=== PATIENT | female | born 1965 | race Caucasian/White ===

== ENCOUNTER → 2017-10-01 08:51 | Outpatient (CLI) | payer OTHER, SELFPAY ==
--- NOTE | 2017-10-01 08:58 | BI_ITS ---
MAMMOGRAPHY - BILATERAL DIAGNOSTIC REASON FOR EXAM: Female, 52 years old. Left breast skin changes. PERTINENT HISTORY: Non-contributory. TECHNIQUE: Digital bilateral breast lesley (3D mammographic acquisition) in the CC and MLO projections. 2-D mediolateral oblique (MLO) and craniocaudad (CC) views of both breasts were obtained. CAD: Full Field Digital Mammography with Computer Added Detection was performed. COMPARISON: None. Baseline examination. FINDINGS: Breast Composition: There are scattered areas of fibroglandular density. There is a 6.8 mm well-defined nodule in the inferior medial aspect of the left breast as seen on the craniocaudad view. This is not well seen on the MLO view. Correlation with ultrasound is recommended. No other significant abnormalities are identified. BI/DIAG MAMM W/CAD, BILAT IMPRESSION: Small nodular density in the left breast as described. Correlation with ultrasound is recommended. ASSESSMENT CATEGORY: BIRADS Category 0: Incomplete. Need additional imaging evaluation. A letter regarding these results will be sent to the patient by the facility within 30 days. Approximately 10% of breast cancers are not detected by mammography. A normal mammogram should not delay biopsy of a clinically suspicious abnormality. Electronically Signed: Myles West MD at 10:50 EDT Tel [phone], Service support ,
--- NOTE | 2017-10-01 08:59 | US_ITS ---
STUDY: ULTRASOUND BREAST - LEFT REASON FOR EXAM: Female, 52 years old. Abnormal screening mammogram. TECHNIQUE: Axial and longitudinal images of the LEFT breast were performed with a high resolution ultrasound transducer. COMPARISON: Comparison is made with prior mammogram done earlier today. FINDINGS: LEFT Breast: There are 2 small adjacent cysts at the 9:00 position breast at 3 cm from the nipple. The larger measures 3 mm x 3 mm x 3 mm. Skin abnormality is at the 3:00 position in the breast. No sonographic abnormality is seen at that site. US/Breast Limited Unilateral IMPRESSION: 2 subcentimeters cyst at the 9:00 position the breast at 3 cm from nipple. ASSESSMENT CATEGORY: BIRADS Category 2: Benign. A letter regarding these results will be sent to the patient by the facility within 30 days. Electronically Signed: Myles West MD at 12:38 EDT Tel [phone], Service support ,
== END ==
PROVIDERS: PCP Nurse Practitioner; Visit Provider Nurse Practitioner
DX: Z12.31 Encounter for screening mammogram for malignant neoplasm of breast (principal); N60.02 Solitary cyst of left breast; R23.4 Changes in skin texture; Z78.0 Asymptomatic menopausal state
CPT/HCPCS: 76642; 77062; 77066; G0279

== ENCOUNTER 2018-02-03 08:27 | Emergency (ER) | payer OTHER, SELFPAY ==
[2018-02-03 08:28] VITALS: BP 151/87; PULSE 90; RESP 18; TEMP 36.6; O2SAT 99; BMI 30.4
--- NOTE | 2018-02-03 08:43 | ED.VISSUMM ---
- ER Visit Summary Date of Service: 02/03/18 Chief Complaint: Slipped and fell on the ice x2 History of Present Illness: The patient is a 52 F tube osteoarthritis with a prior left knee replacement. Patient was outside and slipped on her patio landing on her right buttock. She did not hit her head. No LOC. No blood thinners. She went inside and rested. She got ready for work she was leaving her house going down a few steps she slipped again her left elbow and left wrist. Again she did not hit her head. She is left-hand dominant. She is never had surgery to her elbow over her wrist. She denies any back pain. Prior to the falls she felt fine. Physical Examination: Middle-aged female no acute distress. Complaining of elbow and wrist pain. Vital signs are stable and afebrile. H EENT exam is unremarkable atraumatic. No facial trauma. No scalp trauma. C-spine nontender. Trachea midline. Lungs clear to auscultation bilaterally. Chest wall nontender. Heart regular rate and rhythm. Abdomen is soft and nontender. Normal bowel sounds no peritoneal signs. Pelvic girdle intact. She has full range of motion to both hips. She has range of motion of both knees. Prior left knee replacement scar. Both ankles and feet are nontender. Dorsi and plantar flexion intact. Back is nontender. I nontender. Right upper extremity is nontender. Left shoulder has no skin tenderness. No deformity. Normal range of motion. She has pain on palpation of the left elbow and increasing pain with extension. She also has pain with palpation of the left wrist. No gross bony deformity. Left hand is neurovascular intact. Neurologically she is awake and alert with no focal deficits. Test Results: Left elbow x-ray (3 views ) shows no acute fracture or bony abnormality. Left humerus shows no acute abnormality. 2 views. Left wrist x-ray view shows no acute abnormality. Films were read by myself. Emergency Department Course and Treatment: [place] for pain and she requested something for nausea will be given Zofran. Repeat exam at 09 22 patient is doing well. I discussed and went over all x-rays with her. Abdomen patient was discharged radiologist was able to evaluate the films and is a concern is a nondisplaced radial head fracture. I reviewed his films again I specifically do not see that but had the patient return placed in a long-arm posterior splint for immobilization. She has an orthopedic surgeon she sees in [facility] and will follow up with him to determine if there is a nondisplaced radial head fracture or not. Treatment Plan: Discharged home. Ice all sore areas. Motrin and Limited [place] for pain. Follow-up with your doctor if not improving. Disposition: Discharge Impression: Slipped on ice and fell x2 Acute left elbow rule out nondisplaced radial head fracture placed in a long-arm posterior splint Acute left wrist sprain This note was generated with bluebird bio dictation software. It may contain incorrect words, spelling, and punctuation that were not noted in review of the chart prior to signing ED Disposition - Plan for ED Patient: Disposition: Home or Assisted Living Chief Complaint: Fall Instructions: ED Contusion Elbow, ED Sprain Wrist Prescriptions: Hydrocodone/Acetaminophen [[place] 5-325 Tablet] 1 ea PO Q6H PRN PRN #14 tab PRN Reason: Pain Referrals: Ava Ann, DELIVERY CREW WORKER-C [Primary Care Provider] - 1 Week if not improving Additional Instructions: Ice to all sore areas. Motrin for pain and swelling and Limited [place] for pain. Follow-up with your primary care provider if not improving to be reevaluated.
--- NOTE | 2018-02-03 08:47 | ED.DCSUM_ITS ---
- ER Visit Summary Date of Service: 02/03/18 Chief Complaint: Slipped and fell on the ice x2 History of Present Illness: The patient is a 52 F tube osteoarthritis with a prior left knee replacement. Patient was outside and slipped on her patio landing on her right buttock. She did not hit her head. No LOC. No blood thinners. She went inside and rested. She got ready for work she was leaving her house going down a few steps she slipped again her left elbow and left wrist. Again she did not hit her head. She is left-hand dominant. She is never had surgery to her elbow over her wrist. She denies any back pain. Prior to the falls she felt fine. Physical Examination: Middle-aged female no acute distress. Complaining of elbow and wrist pain. Vital signs are stable and afebrile. H EENT exam is unremarkable atraumatic. No facial trauma. No scalp trauma. C-spine non tender. Trachea midline. Lungs clear to auscultation bilaterally. Chest wall nontender. Heart regular rate and rhythm. Abdomen is soft and nontender. Normal bowel sounds no peritoneal signs. Pelvic girdle intact. She has full range of motion to both hips. She has range of motion of both knees. Prior left knee replacement scar. Both ankles and feet are nontender. Dorsi and plantar flexion intact. Back is nontender. I nontender. Right upper extremity is nontender. Left shoulder has no skin tenderness. No deformity. Normal range of motion. She has pain on palpation of the left elbow and increasing pain with extension. She also has pain with palpation of the left wrist. No gross bony deformity. Left hand is neurovascular intact. Neurologically she is awake and alert with no focal deficits. Test Results: Left elbow x-ray (3 views ) shows no acute fracture or bony abnormality. Left humerus shows no acute abnormality. 2 views. Left wrist x-ray view shows no acute abnormality. Films were read by myself. Emergency Department Course and Treatment: [place] for pain and she requested something for nausea will be given Zofran. Repeat exam at 09 22 patient is doing well. I discussed and went over all x- rays with her. Abdomen patient was discharged radiologist was able to evaluate the films and is a concern is a nondisplaced radial head fracture. I reviewed his films again I specifically do not see that but had the patient return placed in a long-arm posterior splint for immobilization. She has an orthopedic surgeon she sees in [facility] and will follow up with him to determine if there is a nondisplaced radial head fracture or not. Treatment Plan: Discharged home. Ice all sore areas. Motrin and Limited [place] for pain. Follow-up with your doctor if not improving. Disposition: Discharge Impression: Slipped on ice and fell x2 Acute left elbow rule out nondisplaced radial head fracture placed in a long-arm posterior splint Acute left wrist sprain This note was generated with [employer] dictation software. It may contain incorrect words, spelling, and punctuation that were not noted in review of the chart prior to signing ED Disposition - Plan for ED Patient: Disposition: Home or Assisted Living Chief Complaint: Fall Instructions: ED Contusion Elbow, ED Sprain Wrist Prescriptions: Hydrocodone/Acetaminophen [[place] 5-325 Tablet] 1 ea PO Q6H PRN PRN #14 tab PRN Reason: Pain Referrals: Ava Ann, NURSE LEADER-C [Primary Care Provider] - 1 Week if not improving Additional Instructions: Ice to all sore areas. Motrin for pain and swelling and Limited [place] for pain. Follow-up with your primary care provider if not improving to be reevaluated.
[2018-02-03] MEDS: Ondansetron ODT 4 MG Tablet PO (08:50)
[2018-02-03] MEDS: HYDROcodone Bitartrate/Apap 5/325 Tablet PO (08:50)
--- NOTE | 2018-02-03 09:00 | RAD_ITS ---
STUDY: X-RAY - LEFT ELBOW REASON FOR EXAM: Female, 52 years old. Elbow pain following a fall. TECHNIQUE: 3 view(s) of the elbow. COMPARISON: None. FINDINGS: Nondisplaced radial neck fracture. Normal radiocapitellar and ulnotrochlear articulations. Joint effusion. RAD/Elbow min 3 Views IMPRESSION: There is a nondisplaced radial neck fracture with a joint effusion. Electronically Signed: Myles West MD at 9:42 EST Tel [phone], Service support ,
--- NOTE | 2018-02-03 09:06 | RAD_ITS ---
STUDY: X-RAY - LEFT WRIST REASON FOR EXAM: Female, 52 years old. Pain following a fall. TECHNIQUE: 3 view(s) of the wrist were obtained. COMPARISON: None. FINDINGS: Normal visualized distal radius and ulna. Normal radiocarpal articulation. Normal distal radioulnar articulation. Normal carpal bones. Normal carpal articulations. Normal carpometacarpal articulation of the thumb. Normal second through fifth carpometacarpal articulations. Normal visualized metacarpal bones. The soft tissue structures are unremarkable. RAD/Wrist min 3 Views IMPRESSION: Normal x-ray examination of the wrist. Electronically Signed: Myles West MD at 9:43 EST Tel [phone], Service support ,
--- NOTE | 2018-02-03 09:11 | RAD_ITS ---
STUDY: X-RAY - LEFT HUMERUS REASON FOR EXAM: Female, 52 years old. Elbow pain following a fall. TECHNIQUE: 2 view(s) of the humerus. COMPARISON: None. FINDINGS: Normal visualized humerus. There is no demonstrated fracture or osseous destructive process. There is no demonstrated soft tissue abnormality. RAD/Humerus min 2 Views IMPRESSION: Normal x-ray examination of the humerus. Electronically Signed: Myles West MD at 9:41 EST Tel [phone], Service support ,
--- NOTE | 2018-02-03 09:25 | ED.DEP ---
ED Disposition - Plan for ED Patient: Disposition: Home or Assisted Living Chief Complaint: Fall Instructions: ED Sprain Wrist, ED Contusion Elbow Prescriptions: Hydrocodone/Acetaminophen [[place] 5-325 Tablet] 1 ea PO Q6H PRN PRN #14 tab PRN Reason: Pain Referrals: Ava Ann, GLOBAL PROFESSIONAL-C [Primary Care Provider] - 1 Week if not improving Additional Instructions: Ice to all sore areas. Motrin for pain and swelling and Limited [place] for pain. Follow-up with your primary care provider if not improving to be reevaluated.
--- NOTE | 2018-02-03 09:29 | DCINST.ED_ITS ---
ED Disposition - Plan for ED Patient: Disposition: Home or Assisted Living Chief Complaint: Fall Instructions: ED Sprain Wrist, ED Contusion Elbow Prescriptions: Hydrocodone/Acetaminophen [[place] 5-325 Tablet] 1 ea PO Q6H PRN PRN #14 tab PRN Reason: Pain Referrals: Ava Ann, REELING MACHINE SETUP OPERATOR-C [Primary Care Provider] - 1 Week if not improving Additional Instructions: Ice to all sore areas. Motrin for pain and swelling and Limited [place] for pain. Follow-up with your primary care provider if not improving to be reevaluated.
[2018-02-03 09:46] VITALS: BP 129/74; PULSE 62; RESP 15; O2SAT 97
== END 2018-02-03 10:48 | disposition home or self-care (01) ==
PROVIDERS: Emergency Provider Emergency Medicine; Family Provider Nurse Practitioner; PCP Nurse Practitioner
DX: S52.125A Nondisplaced fracture of head of left radius, initial encounter for closed fracture (principal); S63.502A Unspecified sprain of left wrist, initial encounter; W00.2XXA Other fall from one level to another due to ice and snow, initial encounter; Y93.89 Activity, other specified; Y92.008 Other place in unspecified non-institutional (private) residence as the place of occurrence of the external cause
CPT/HCPCS: 29105; 73060; 73080; 73110; 99284

== ENCOUNTER → 2018-04-13 15:59 | Outpatient (CLI) | payer OTHER, SELFPAY ==
--- OUTSIDE RECORDS SUMMARY | 2018-06-15 18:33 | XMS RPT_ITS | Continuity of Care Document ---
:1965 Author Organization [facility] Address [address] [facility] [address] [place] [address] Phone Care Team Providers Name Role Phone Ava Ann CNP Unavailable Timo Martinez Unavailable Brooklyn Hunt Unavailable Unavailable Edison Porter Unavailable Unavailable Yulisa Leal Unavailable Unavailable Unavailable Unavailable Problems Name Dates Details Artificial knee joint present, left (Z96.652, V43.65) Status: Active Bilateral breast cysts (N60.01, 610.0) Comments: from mammogram, to repeat in a year Status: Active BMI 32.0-32.9,adult (Z68.32, V85.32) Status: Active Body aches (R52, 780.96) Status: Active Breast skin changes (R23.4, 782.8) Comments: at posterio 3 oclock position Status: Active Cough (R05, 786.2) Status: Active Deliveries (Parity) Comments: 3. had gestational diabetes Status: Active Encounter for screening mammogram for breast cancer (Renamed from Encounter for screening mammogram for malignant neoplasm of breast) (Z12.31, V76.12) Status: Active Facial pressure (R68.89, 780.99) Status: Active History of Fen Fen use Comments: was on redux, fen fen Status: Active Hypocalcemia (E83.51, 275.41) Comments: normal Status: Active Nasal congestion (R09.81, 478.19) Status: Active Nonsmoker (Z78.9, V49.89) Status: Active Postmenopausal (Renamed from Postmenopausal status) (Z78.0, V49.81) Status: Active Pregnancies () Comments: 3. Status: Active Right knee pain (M25.561, 719.46) Status: Active Sinusitis (J32.9, 473.9) Status: Active Sinusitis, acute (J01.90, 461.9) Status: Active Medications Name Dates Details Augmentin 875-125 MG Oral Tablet 1 (one) Tablet bid for 14 days Quantity: 28 {Tablet} Refills: 0 Ordered:28-Mar-2018 Yulisa Leal Start : 28-Mar-2018 Active Comments:Take with food Benzonatate 200 MG Oral Capsule 1 (one) Capsule PO TID PRN for 7 days Quantity: 21 {Capsule} Refills: 0 Ordered:28-Mar-2018 Yulisa Leal Start : 28-Mar-2018 Active PLEXUS products 1 qd Active Zyrtec 1 bid prn Active Allergies and Adverse Reactions Name Dates Details No Known Drug Allergies (Allergy) Onset: 20-Sep-2017 Status: Active Procedures Procedure Dates Details R KNEE - medial meniscus tear and Completed cleanup Comments: 04/2016 TKR -- LEFT Completed Comments: No post-op complications. 2011 - appx -- had 7 total surgeries on that knee Date Value Details 03-Feb-2018 Discharge Instruction Result: Comments: See Note; NOTES: [facility] Medical Records Department [address] [place] [id number] Discharge Instruction 02/03/18 0925 MR#: [id number] Acct: [id number] Name: LUIS HIGHTOWER Rep #: [id number] : 1965 52 From: Ian Staples MD PCP: Ava Ann NP Status: DEP ER ED Disposition - Plan for ED Patient: Disposition: Home or Assisted Living Chief Complaint: Fal l Instructions: ED Sprain Wrist, ED Contusion Elbow Prescriptions: Hydrocodone/Acetaminophen [[place] 5-325 Tablet] 1 ea PO Q6H PRN PRN #14 tab PRN Reason: Pain Referrals: Ava Ann NP-C [Primary Care P rosario] - 1 Week if not improving Additional Instructions: Ice to all sore areas. Motrin for pain and swelling and Limited [place] for pain. Follow-up with your primary care provider if not improving t o be reevaluated. What to do if you have Problems For any increased pain, shortness of breath, bleeding, nausea or vomiting, chest pain, or any unexpected problems, contact your Primary Care Provide r. Call [facility] ([phone]) or report to the closest Emergency Room. Call 911 if necessary. 02/03/18 1751 <Electronically signed by Ian Staples MD> Date ____ Ian Staples MD Cosigner Signature (If Indicated): Date CC: Ava Ann NP 03-Feb-2018 Emergency Department Summary Result: Comments: See Note; NOTES: [facility] Medical Records Department [address] [place] [address] Emergency Department Summary 02/03/18 0843 MR#: [id number] Acct: [id number] Name: LUIS HIGHTOWER Rep #: [id number] : 1965 52 From: Ian Staples MD PCP: Ava Ann NP Status: DEP ER - ER Visit Summary Date of Service: 02/03/18 Chief Complaint: Slipped and fell on the ic e x2 History of Present Illness: The patient is a 52 F tube osteoarthritis with a prior left knee replacement. Patient was outside and slipped on her patio landing on her right buttock. She did not hit her head. No LOC. No blood thinners. She went inside and rested. She got ready for work she was leaving her house going down a few steps she slipped again her left elbow and left wrist. Again she did n ot hit her head. She is left-hand dominant. She is never had surgery to her elbow over her wrist. She denies any back pain. Prior to the falls she felt fine. Physical Examination: Middle-aged female no acute distress. Complaining of elbow and wrist pain. Vital signs are stable and afebrile. H EENT exam is unremarkable atraumatic. No facial trauma. No scalp trauma. C-spine nontender. Trachea midline. Lungs clear to auscultation bilaterally. Chest wall nontender. Heart regular rate and rhythm. Abdomen is soft and nontender. Normal bowel sounds no peritoneal signs. Pelvic girdle intact. She has full r venancio of motion to both hips. She has range of motion of both knees. Prior left knee replacement scar. Both ankles and feet are nontender. Dorsi and plantar flexion intact. Back is nontender. I nontender . Right upper extremity is nontender. Left shoulder has no skin tenderness. No deformity. Normal range of motion. She has pain on palpation of the left elbow and increasing pain with extension. She also has pain with palpation of the left wrist. No gross bony deformity. Left hand is neurovascular intact. Neurologically she is awake and alert with no focal deficits. Test Results: Left elbow x-ray (3 v iews ) shows no acute fracture or bony abnormality. Left humerus shows no acute abnormality. 2 views. Left wrist x-ray view shows no acute abnormality. Films were read by myself. Emergency Department C ourse and Treatment: [place] for pain and she requested something for nausea will be given Zofran. Repeat exam at 22 patient is doing well. I discussed and went over all x-rays with her. Abdomen patien t was discharged radiologist was able to evaluate the films and is a concern is a nondisplaced radial head fracture. I reviewed his films again I specifically do not see that but had the patient return placed in a long-arm posterior splint for immobilization. She has an orthopedic surgeon she sees in [facility] and will follow up with him to determine if there is a nondisplaced radial head fracture or no t. Treatment Plan: Discharged home. Ice all sore areas. Motrin and Limited [place] for pain. Follow-up with your doctor if not improving. Disposition: Discharge Impression: Slipped on ice and fell x2 A cute left elbow rule out nondisplaced radial head fracture placed in a long-arm posterior splint Acute left wrist sprain This note was generated with [employer] dictation software. It may contain incorre ct words, spelling, and punctuation that were not noted in review of the chart prior to signing ED Disposition - Plan for ED Patient: Disposition: Home or Assisted Living Chief Complaint: Fall Instru ctions: ED Contusion Elbow, ED Sprain Wrist Prescriptions: Hydrocodone/Acetaminophen [[place] 5-325 Tablet] 1 ea PO Q6H PRN PRN #14 tab PRN Reason: Pain Referrals: Ava Ann, HOT END OPERATOR-C [Primary Care Provider] - 1 Week if not improving Additional Instructions: Ice to all sore areas. Motrin for pain and swelling and Limited [place] for pain. Follow-up with your primary care provider if not improving to be ree valuated. What to do if you have Problems For any increased pain, shortness of breath, bleeding, nausea or vomiting, chest pain, or any unexpected problems, contact your Primary Care Provider. Call [facility] ([phone]) or report to the closest Emergency Room. Call 911 if necessary. 02/03/18 1751 <Electronically signed by Ian Staples MD> Date Ian Staples MD Cosigner Signature (If Indicated): Date CC: Ava Ann NP 03-Feb-2018 Humerus min 2 Views Result: Comments: See Note; NOTES: [facility] Imaging Services [address] [place] [address] Humerus min 2 Views MR#: [id number] Acct: [id number] Name: LORRI HIGHTWOER Rep #: [id number] D OB: 1965 F 52 From: Myles West MD PCP: Ava Ann NP Status: REG ER Study: Humerus min 2 Views Date of Exam: 02/03/18 Exam# [id number] Ordering Dr: Ian Staples MD STUDY: X-RAY - LEFT HUMERUS REASON FOR EXAM: Female, 52 years old. Elbow pain following a fall. TECHNIQUE: 2 view(s) of the humerus. COMPARISON: None. FINDINGS: Normal visualized hu merus. There is no demonstrated fracture or osseous destructive process. There is no demonstrated soft tissue abnormality. RAD/Humerus min 2 Vie ws IMPRESSION: Normal x-ray examination of the humerus. Electronically Signed: Myles West MD at 9:41 EST Tel [phone], Service support , CC: Ava Ann NP; Ian Staples MD Antique Collector: Signed 03-Feb-2018 Elbow min 3 Views Result: Comments: See Note; NOTES: [facility] Imaging Services [address] [place] [address] Elbow min 3 Views MR#: [id number] Acct: [id number] Name: LORRI HIGHTOWER Rep #: [id number] : 1965 F 52 From: Myles West MD PCP: Ava Ann NP Status: REG ER Study: Elbow min 3 Views Date of Exam: 02/03/18 Exam# [id number] Ordering Dr: Ian Staples MD STUDY: X-RAY - LEFT ELB OW REASON FOR EXAM: Female, 52 years old. Elbow pain following a fall. TECHNIQUE: 3 view(s) of the elbow. COMPARISON: None. FINDINGS: Nondisplaced radial neck fra cture. Normal radiocapitellar and ulnotrochlear articulations. Joint effusion. RAD/Elbow min 3 Views IMPRESSION: There is a nondisplaced radial neck fracture with a joint effusion. Electronically Signed: Myles West MD at 9:42 EST Tel [phone], Service support , CC: Ava Ann NP; Ian Staples MD Antique Collector: Signed 03-Feb-2018 Wrist min 3 Views Result: Comments: See Note; NOTES: [facility] Imaging Services [address] [place] [address] Wrist min 3 Views MR#: [id number] Acct: [id number] Name: LORRI HIGHTOWER Rep #: [id number] : 1965 F 52 From: Myles West MD PCP: Ava Ann NP Status: REG ER Study: Wrist min 3 Views Date of Exam: 02/03/18 Exam# [id number] Ordering Dr: Ian Staples MD STUDY: X-RAY - LEFT WRI ST REASON FOR EXAM: Female, 52 years old. Pain following a fall. TECHNIQUE: 3 view(s) of the wrist were obtained. COMPARISON: None. FINDINGS: Normal visualized di stal radius and ulna. Normal radiocarpal articulation. Normal distal radioulnar articulation. Normal carpal bones. Normal carpal articulations. Normal carpometacarpal articulation of the thumb. Normal second through fifth carpometacarpal articulations. Normal visualized metacarpal bones. The soft tissue structures are unremarkable. RAD/Wrist min 3 Views IMPRESSION: Normal x-ray examination of the wrist. Electronically Signed: Myles West MD at 9:43 EST Tel [phone], Service support , CC: Ava Ann NP; Ian Staples MD Antique Collector: Signed 01-Oct-2017 Breast Limited Unilateral Result: Comments: See Note; NOTES: [facility] Imaging Services [address] [place] [address] Breast Limited Unilateral MR#: [id number] Acct: [id number] Name: LORRI HIGHTOWER Rep #: [id number] : 1965 F 52 From: Myles West MD PCP: Ava Ann NP Status: REG CLI Study: Breast Limited Unilateral Date of Exam: 10/01/17 Exam# [id number] Ordering Dr: Ava Ann STUDY: UL TRASOUND BREAST - LEFT REASON FOR EXAM: Female, 52 years old. Abnormal screening mammogram. TECHNIQUE: Axial and longitudinal images of the LEFT breast were performed with a high resolution ultrasound transducer. COMPARISON: Comparison is made with prior mammogram done earlier today. FINDINGS: LEFT Breast: There are 2 small adjacent cysts at the 9:00 position b reast at 3 cm from the nipple. The larger measures 3 mm x 3 mm x 3 mm. Skin abnormality is at the 3:00 position in the breast. No sonographic abnormality is seen at that site. US/Breast Limited Unilateral IMPRESSION: 2 subcentimeters cyst at the 9:00 position the breast at 3 cm from nipple. ASSESSMENT CATEGOR Y: BIRADS Category 2: Benign. A letter regarding these results will be sent to the patient by the facility within 30 days. Electronically Signed: Myles West MD at 12:38 EDT Tel [phone], Service support , CC: Ava Ann NP Antique Collector: Signed 01-Oct-2017 DIAG MAMM W/CAD, BILAT Result: Comments: See Note; NOTES: [facility] Imaging Services [address] [place] [address] DIAG MAMM W/CAD, BILAT MR#: [id number] Acct: [id number] Name: CAMPBELLLORRI AMARAL Rep #: [id number] : 1965 F 52 From: Myles West MD PCP: Ava Ann NP Status: REG CLI Study: DIAG MAMM W/CAD, BILAT Date of Exam: 10/01/17 Exam# [id number] Ordering Dr: Ava Ann MAMMOGRAPHY - B ILATERAL DIAGNOSTIC REASON FOR EXAM: Female, 52 years old. Left breast skin changes. PERTINENT HISTORY: Non-contributory. TECHNIQUE: Digital bilateral breast lesley (3D mammographic acquisition) in the CC and MLO projections. 2-D mediolateral oblique (MLO) and craniocaudad (CC) views of both breasts were obtained. CAD: Full Field Digital Mammography with Computer Added Detection was performed. ADAM RISON: None. Baseline examination. FINDINGS: Breast Composition: There are scattered areas of fibroglandular density. There is a 6.8 mm well-defined nodule in the i nferior medial aspect of the left breast as seen on the craniocaudad view. This is not well seen on the MLO view. Correlation with ultrasound is recommended. No other significant abnormalities are iden tified. BI/DIAG MAMM W/CAD, BILAT IMPRESSION: Small nodular density in the left breast as described. Correlation with ultrasound is recommended. ASSESSMENT CATEGORY: BIRADS Category 0: Incomplete. Need additional imaging evaluation. A letter regarding these results will be sent to the patient by the facility within 30 days. Approximately 10% of breast cancers are not detected by mammography. A normal mammogram should not delay biopsy of a clinically suspicious abnormality. Electronically Signed: Myles West MD at 10:50 EDT Tel [phone], Service support , CC: Ava Ciesa HOT END OPERATOR Antique Collector: Signed Family History Unknown Family Member Name Dates Details Father Comments: , adenocarcinoma of lung, neck - squamous cell carcinoma, HTN, [place], high triglycerides Status: Active Mother Comments: unknown breast finding, osteoarthritis, alcholism Status: Active Social History Name Dates Details Alcohol Use Comments: 0-2 weekly Status: Active Caffeine Use Comments: 1 unsweet tea daily Status: Active No Drug Use Status: Active Non Smoker/No Tobacco Use Status: Active Vital Signs Date Test Result Details :53 Temperature 97.7 f Comments: Method: Temporal Pulse 93 /min Comments: Pattern: Regular Respiration Rate 18 /min Comments: Pattern: Unlabored O2 SAT 95 % Comments: Room air BP Systolic 130 mm[Hg] Comments: Patient Position: Sitting; Cuff Location: Left Arm; Cuff Size: Standard BP Diastolic 82 mm[Hg] Comments: Patient Position: Sitting; Cuff Location: Left Arm; Cuff Size: Standard Weight 214.125 lb Height 68 in Body Mass Index Calculated 32.56 kg/m2 Body Surface Area Calculated 2.1 m2 :13 Temperature 97.6 f Comments: Method: Temporal Pulse 89 /min Comments: Pattern: Regular Respiration Rate 18 /min Comments: Pattern: Unlabored O2 SAT 97 % Comments: Room air BP Systolic 120 mm[Hg] Comments: Patient Position: Sitting; Cuff Location: Left Arm; Cuff Size: Standard BP Diastolic 84 mm[Hg] Comments: Patient Position: Sitting; Cuff Location: Left Arm; Cuff Size: Standard Weight 214.125 lb Height 68 in Body Mass Index Calculated 32.56 kg/m2 Body Surface Area Calculated 2.1 m2 [id number]-Uit-[id number]:15 Temperature 97.5 f Pulse 98 /min Comments: Pattern: Regular Respiration Rate 18 /min Comments: Pattern: Unlabored O2 SAT 99 % Comments: Room air BP Systolic 128 mm[Hg] Comments: Patient Position: Sitting; Cuff Location: Left Arm; Cuff Size: Standard BP Diastolic 82 mm[Hg] Comments: Patient Position: Sitting; Cuff Location: Left Arm; Cuff Size: Standard Weight 216 lb Height 68 in Body Mass Index Calculated 32.84 kg/m2 Body Surface Area Calculated 2.11 m2 :21 Pulse 102 /min Comments: Pattern: Regular Respiration Rate 16 /min Comments: Pattern: Unlabored O2 SAT 98 % Comments: Room air BP Systolic 122 mm[Hg] Comments: Patient Position: Sitting; Cuff Location: Left Arm; Cuff Size: Standard BP Diastolic 60 mm[Hg] Comments: Patient Position: Sitting; Cuff Location: Left Arm; Cuff Size: Standard Weight 216 lb Height 68 in Body Mass Index Calculated 32.84 kg/m2 Body Surface Area Calculated 2.11 m2 Results Date Description Value Details 34-Iyv-254503:10 Lipid Panel (89271) Comments: September 24; PATIENT WAS FASTINGPERFORMED BY: [employer] [id number] LDL/HDL Ratio 2.3 {ratio} (Normal) Range: 0.0-3.2 Comments: LDL/HDL Ratio Men Women 1/2 Avg.Risk 1.0 1.5 Av g.Risk 3.6 3.2 2X Avg.Risk 6.2 5.0 3X Avg.Risk 8.0 6.1 LDL Cholesterol Calc 108 mg/dL (Abnormal) Range: 0-99 VLDL Cholesterol Gabriel 27 mg/dL (Normal) Range: 5-40 HDL Cholesterol 46 mg/dL (Normal) Triglycerides 135 mg/dL (Normal) Range: 0-149 Cholesterol, Total 181 mg/dL (Normal) Range: 100-199 81-Ezp-415397:10 Metabolic Panel, Comprehensive Comments: September 24; PATIENT WAS FASTINGPERFORMED BY: [employer] [id number] ([id number]) ALT (SGPT) 16 [iU]/L (Normal) Range: 0-32 AST (SGOT) 16 [iU]/L (Normal) Range: 0-40 Alkaline Phosphatase 94 [iU]/L (Normal) Range: 39-117 Bilirubin, Total 0.5 mg/dL (Normal) Range: 0.0-1.2 A/G Ratio 1.9 (Normal) Range: 1.2-2.2 Globulin, Total 2.3 g/dL (Normal) Range: 1.5-4.5 Albumin 4.4 g/dL (Normal) Range: 3.5-5.5 Protein, Total 6.7 g/dL (Normal) Range: 6.0-8.5 Calcium 9.6 mg/dL (Normal) Range: 8.7-10.2 Carbon Dioxide, Total 23 mmol/L (Normal) Range: 20-29 Chloride 104 mmol/L (Normal) Range: 96-106 Potassium 4.7 mmol/L (Normal) Range: 3.5-5.2 Sodium 144 mmol/L (Normal) Range: 134-144 BUN/Creatinine Ratio 11 (Normal) Range: 9-23 eGFR If Africn Am 110 mL/min/1.73 (Normal) eGFR If NonAfricn Am 96 mL/min/1.73 (Normal) Creatinine 0.73 mg/dL (Normal) Range: 0.57-1.00 BUN 8 mg/dL (Normal) Range: 6-24 Glucose 94 mg/dL (Normal) Range: 65-99 95-Ruf-576613:10 TSH (THYROID STIMULATING Comments: September 24; PATIENT WAS FASTINGPERFORMED BY: [facility] [id number] [employer]) ([id number]) TSH 2.570 {uIU/mL} (Normal) Range: 0.450-4.500 27-Pnj-367508:10 CBC, Platelets & Auto Diff Comments: to be done September 24; PATIENT WAS FASTINGPERFORMED BY: [employer] [id number] ([id number]) Immature Grans (Abs) 0.0 {x10E3/uL} (Normal) Range: 0.0-0.1 Immature Granulocytes 0 % (Normal) Baso (Absolute) 0.0 {x10E3/uL} (Normal) Range: 0.0-0.2 Eos (Absolute) 0.1 {x10E3/uL} (Normal) Range: 0.0-0.4 Monocytes(Absolute) 0.5 {x10E3/uL} (Normal) Range: 0.1-0.9 Lymphs (Absolute) 2.1 {x10E3/uL} (Normal) Range: 0.7-3.1 Neutrophils (Absolute) 5.2 {x10E3/uL} (Normal) Range: 1.4-7.0 Basos 1 % (Normal) Eos 2 % (Normal) Monocytes 6 % (Normal) Lymphs 27 % (Normal) Neutrophils 64 % (Normal) Platelets 296 {x10E3/uL} (Normal) Range: 150-379 RDW 14.3 % (Normal) Range: 12.3-15.4 MCHC 32.0 g/dL (Normal) Range: 31.5-35.7 MCH 27.3 pg (Normal) Range: 26.6-33.0 MCV 85 fL (Normal) Range: 79-97 Hematocrit 39.7 % (Normal) Range: 34.0-46.6 Hemoglobin 12.7 g/dL (Normal) Range: 11.1-15.9 RBC 4.66 {x10E6/uL} (Normal) Range: 3.77-5.28 WBC 7.9 {x10E3/uL} (Normal) Range: 3.4-10.8 Plan of Care Name Dates Details Instructions Sinusitis : Follow up if no improvement or if symptoms worsen Indication: Sinusitis Sinusitis : Sinusitis *: sinus infection Indication: Sinusitis Nonsmoker : Eprescribed prescriptions (G8553) Indication: Nonsmoker Nasal congestion : Follow up if no improvement or if symptoms worsen Indication: Nasal congestion Sinusitis, acute : *URI Treatment Indication: Sinusitis, acute Sinusitis, acute : *URI Symptoms Indication: Sinusitis, acute Sinusitis, acute : *Antibiotic Usage Education - Female Indication: Sinusitis, acute Nonsmoker : Eprescribed prescriptions (G8553) Indication: Nonsmoker Nonsmoker : Follow up as needed Indication: Nonsmoker Hypocalcemia : Reviewed Lab Indication: Hypocalcemia Bilateral breast cysts : Reviewed Diagnostic Tests Indication: Bilateral breast cysts Hypocalcemia : Eprescribed prescriptions (G8553) Indication: Hypocalcemia Nonsmoker : Follow up in 2 weeks Indication: Nonsmoker Hypocalcemia : Eprescribed prescriptions (G8553) Indication: Hypocalcemia Planned Procedures Breast Ultrasound - LeftBy: Marissa WANG, On: 01-Oct-2017 Intent Ava Espino CNP BILATERAL DIAGNOSTIC DIGITAL MAMMOGRAPHY On: 01-Oct-2017 Intent ([id number])By: Ava Ann CNP, CNP, Comments: with tomosynthesis Ava Murillo ULTRASOUND, LEFT BREAST ([id number])By: Marissa On: 20-Sep-2017 Intent Ava WANG CNP, Mary E SCREENING DIGITAL TOMOSYNTHESIS OF On: 20-Sep-2017 Intent BREAST ([id number])By: Ava Ann CNP, CNP, Mary E DEXA SCAN AXIAL SKELETON ([id number])By: On: 20-Sep-2017 Intent Ava Ann CNP, CNP Ava Murillo Instructions Name Dates Details Nonsmoker : How to access health information online Indication: Nonsmoker Nonsmoker : How to access health information online - Detail Indication: Nonsmoker Facial pressure : Patient Instructions Indication: Facial pressure Nonsmoker : How to access health information online Indication: Nonsmoker Nonsmoker : How to access health information online - Detail Indication: Nonsmoker Nonsmoker : Patient Instructions Indication: Nonsmoker Hypocalcemia : How to access health information online Indication: Hypocalcemia Hypocalcemia : How to access health information online - Detail Indication: Hypocalcemia Hypocalcemia : Patient Instructions Indication: Hypocalcemia Hypocalcemia : How to access health information online Indication: Hypocalcemia Hypocalcemia : How to access health information online - Detail Indication: Hypocalcemia Encounters Review On: 28-Mar-2018 8:53 Encounter Reason: Sinusitis - Symptoms include nasal congestion, forehead pressure and cough. Onset was 4 day(s) ago. The patient describes this as worsening. Note for Sinusitis: Symptoms started 5 days ago with sore t hroat, cough-yellow/green, nasal drainage-green, nasal congestion, chest tightness,Encounter Diagnosis: BMI 32.0-32.9,adult, Nonsmoker, Body aches, Facial pressure, Sinusitis, Cough [facility] Office Visit On: 15-Feb-2018 9:12 Encounter Reason: Sinusitis - Symptoms include nasal congestion, cough, ear pain and headache. Onset was 3 week(s) ago. The patient describes this as worsening. Note for Sinusitis: swollen left side of neck, dizzinessH End: 15-Feb-2018 9:35 ave tried mucinex for cough, x 3 weeks now with earache., [ADDITIONAL REASON] Elbow Problem - Note for Elbow problem: Fracture left elbow contusion of wrist and should occured 2 weeks ago Fell onice Encounter Diagnosis: Nonsmoker, BMI 32.0-32.9,adult, Sinusitis, acute, Nasal congestion [facility] Office Visit On: 07-Oct-2017 14:12 Encounter Reason: Follow up tests - Diagnostic tests include other (labs). Note for Discuss procedure results: here to review labs, had mammogram and needed ultrasound of breastEncounter Diagnosis: BMI 32.0-32.9,adult, Nonsmoker, Hypocalcemia, End: 07-Oct-2017 14:32 Bilateral breast cysts, Postmenopausal (Renamed from Postmenopausal status), Right knee pain [facility] Phone Encounter On: 01-Oct-2017 8:56 Encounter Diagnosis: Breast skin changes End: 01-Oct-2017 9:02 [facility] Office Visit On: 20-Sep-2017 15:15 Encounter Reason: Breast Problems - The patient complains of breast problems in the left lower outer quadrant. Onset was 2 week(s) ago. Note for Breast problems: Breast issue noticed a week agoEncounter Diagnosis: Hypocalcemia, BMI 32.0-32.9,adult End: 20-Sep-2017 16:12 , Nonsmoker, History of Fen Fen use, Breast skin changes, Artificial knee joint present, left, Postmenopausal (Renamed from Postmenopausal status), Encounter for screening mammogram for breast cancer (Renamed from Encounter for screening mammogram f or malignant neoplasm of breast) [facility] [employer]-Radha Hightower; a guarantor
--- OUTSIDE RECORDS SUMMARY | 2018-06-15 18:33 | XMS RPT_ITS | Continuity of Care Document ---
:1965 Author Organization [facility] Address [address] [place] [address] Phone Care Team Providers Name Role Phone Ava Ann CNP Unavailable Cameronyvon Timo Unavailable Edison Porter Unavailable Unavailable Yulisa Leal [...] Discharge Instruction Result: Comments: See Note; NOTES: [facility] Medical Records Department [address] [place] [address] Discharge Instruction 02/03/18 0925 MR#: [id number] Acct: [id number] Name: LUIS HIGHTOWER Rep #: [id number] : 1965 52 From: Ian Staples MD PCP: Ava Ann NP Status: DEP ER ED Disposition - Plan for ED Patient: Disposition: Home or Assisted Living Chief Complaint: Fal l Instructions: ED Sprain Wrist, ED Contusion Elbow Prescriptions: Hydrocodone/Acetaminophen [[place] 5-325 Tablet] 1 ea PO Q6H PRN PRN #14 tab PRN Reason: Pain Referrals: Ava Ann NP-C [Primary Care P rosario] - 1 Week if not improving Additional Instructions: Ice to all sore areas. Motrin for pain and swelling and Limited [place] for pain. Follow-up with your primary care provider if not improving t o be reevaluated. What to do if you have Problems For any increased pain, shortness of breath, bleeding, nausea or vomiting, chest pain, or any unexpected problems, contact your Primary Care Provide r. Call [facility] Registry ([phone]) or report to the closest Emergency Room. Call 911 if necessary. 02/03/18 1751 <Electronically signed by Ian Staples MD> Date ____ Ian Staples MD Cosigner Signature (If Indicated): Date CC: Ava Ann NP 03-Feb-2018 Emergency Department Summary Result: Comments: See Note; NOTES: [facility] Medical Records Department [address] [place] [place] [address] Emergency Department Summary 02/03/18 0843 MR#: [id number] Acct: [id number] Name: LUIS HIGHTOWER Rep #: [id number] : 1965 52 From: Ian Staples MD [...] myself. Emergency Department C ourse and Treatment: [place] for pain and she requested something for nausea will be given Zofran. Repeat exam at 09 22 patient is doing well. I discussed [...] has an orthopedic surgeon she sees in [facility] and will follow up with him to determine if there is a nondisplaced radial head fracture or no t. Treatment Plan: Discharged home. Ice all sore areas. Motrin and Limited [place] for pain. Follow-up with your doctor if not improving. Disposition: Discharge Impression: Slipped on ice and fell x2 A cute left elbow rule out nondisplaced radial head fracture placed in a long-arm posterior splint Acute left wrist sprain This note was generated with FidusNet dictation software. It may contain incorre ct words, spelling, and punctuation that were not noted in review of the chart prior to signing ED Disposition - Plan for ED Patient: Disposition: Home or Assisted Living Chief Complaint: Fall Instru ctions: ED Contusion Elbow, ED Sprain Wrist Prescriptions: Hydrocodone/Acetaminophen [[place] 5-325 Tablet] 1 ea PO Q6H PRN PRN #14 tab PRN Reason: Pain Referrals: Ava Ann, PUMP OILER-C [Primary Care Provider] - 1 Week if not improving Additional Instructions: Ice to all sore areas. Motrin for pain and swelling and Limited [place] for pain. Follow-up with your primary care provider if not improving to be ree valuated. What to do if you have Problems For any increased pain, shortness of breath, bleeding, nausea or vomiting, chest pain, or any unexpected problems, contact your Primary Care Provider. Call [facility] ([phone]) or report to the closest Emergency Room. Call 911 if necessary. 02/03/18 1751 <Electronically signed by Ian Staples MD> Date Ian Staples MD Cosigner Signature (If Indicated): Date CC: Ava Ann NP 03-Feb-2018 Humerus min 2 Views Result: Comments: See Note; NOTES: [facility] Imaging Services [address] [place] [address] Humerus min 2 Views MR#: [id number] Acct: [id number] Name: CAMPBELLLORRI Monae Rep #: [id number] D OB: 1965 F 52 From: Myles West MD PCP: Ava Ann NP Status: REG ER Study: Humerus min 2 Views Date of Exam: 02/03/18 Exam# [id number] Ordering Dr: Ian Staples MD STUDY: X-RAY [...] Myles West MD at 9:41 EST Tel [phone], Service support , CC: Ava Ann NP; Ian Staples MD Copier Repair Technician: Signed 03-Feb-2018 Elbow min 3 Views Result: Comments: See Note; NOTES: [facility] Imaging Services [address] [place] [address] Elbow min 3 Views MR#: [id number] Acct: [id number] Name: LORRI HIGHTOWER Rep #: [id number] : 1965 F 52 From: Myles West MD PCP: Ava Ann NP Status: REG ER Study: Elbow min 3 Views Date of Exam: 02/03/18 Exam# [id number] Ordering Dr: Ian Staples MD STUDY: X-RAY [...] Myles West MD at 9:42 EST Tel [phone], Service support , CC: Ava Ann NP; Ian Staples MD Copier Repair Technician: Signed 03-Feb-2018 Wrist min 3 Views Result: Comments: See Note; NOTES: [facility] Imaging Services [address] [place] [address] Wrist min 3 Views MR#: [id number] Acct: [id number] Name: LORRI HIGHTOWER Rep #: [id number] : 1965 F 52 From: Myles West MD PCP: Ava Ann NP Status: REG ER Study: Wrist min 3 Views Date of Exam: 02/03/18 Exam# [id number] Ordering Dr: Ian Staples MD STUDY: X-RAY [...] Myles West MD at 9:43 EST Tel [phone], Service support , CC: Ava Ann NP; Ian Staples MD Copier Repair Technician: Signed 01-Oct-2017 Breast Limited Unilateral Result: Comments: See Note; NOTES: [facility] Imaging Services [address] [place] [address] Breast Limited Unilateral MR#: [id number] Acct: [id number] Name: LORRI HIGHTOWER Rep #: [id number] : 1965 F 52 From: Myles West MD PCP: Ava Ann NP Status: REG CLI Study: Breast Limited Unilateral Date of Exam: 10/01/17 Exam# [id number] Ordering Dr: Ava Ann STUDY: UL TRASOUND [...] Myles West MD at 12:38 EDT Tel [phone], Service support , CC: Ava Ann NP Copier Repair Technician: Signed 01-Oct-2017 DIAG MAMM W/CAD, BILAT Result: Comments: See Note; NOTES: [facility] Imaging Services [address] [place] [address] DIAG MAMM W/CAD, BILAT MR#: [id number] Acct: [id number] Name: LORRI HIGHTOWER Rep #: [id number] : 1965 F 52 From: Myles West MD PCP: Ava Ann NP Status: REG CLI Study: DIAG MAMM W/CAD, BILAT Date of Exam: 10/01/17 Exam# [id number] Ordering Dr: Ava Ann MAMMOGRAPHY - B [...] Myles West MD at 10:50 EDT Tel [phone], Service support , CC: Ava Ann NP Copier Repair Technician: Signed Family History Unknown Family Member Name Dates Details Father Comments: , adenocarcinoma of lung, neck - squamous cell carcinoma, HTN, [place], high triglycerides Status: Active Mother Comments: unknown [...] kg/m2 Body Surface Area Calculated 2.1 m2 :15 Temperature 97.5 f Pulse 98 /min Comments: [...] 2.11 m2 Results Date Description Value Details 06-Zvx-245550:10 Lipid Panel (00988) Comments: September 24; PATIENT WAS FASTINGPERFORMED BY: [id number] [facility] [id number] LDL/HDL Ratio 2.3 {ratio} (Normal) Range: 0.0-3.2 Comments: LDL/HDL Ratio Men Women 1/2 Avg.Risk 1.0 1.5 Av g.Risk 3.6 3.2 2X Avg.Risk 6.2 5.0 3X Avg.Risk 8.0 6.1 LDL Cholesterol Calc 108 mg/dL (Abnormal) Range: 0-99 VLDL Cholesterol Gabriel 27 mg/dL (Normal) Range: 5-40 HDL Cholesterol 46 mg/dL (Normal) Triglycerides 135 mg/dL (Normal) Range: 0-149 Cholesterol, Total 181 mg/dL (Normal) Range: 100-199 52-Wnw-823826:10 Metabolic Panel, Comprehensive Comments: September 24; PATIENT WAS FASTINGPERFORMED BY: [employer] [facility] [id number] ([id number]) ALT (SGPT) 16 [iU]/L (Normal) Range: 0-32 [...] 6-24 Glucose 94 mg/dL (Normal) Range: 65-99 69-Qkl-768029:10 TSH (THYROID STIMULATING Comments: September 24; PATIENT WAS FASTINGPERFORMED BY: [facility] [facility] [id number] HORMONE) ([id number]) TSH 2.570 {uIU/mL} (Normal) Range: 0.450-4.500 00-Gcg-854350:10 CBC, Platelets & Auto Diff Comments: to be done September 24; PATIENT WAS FASTINGPERFORMED BY: [employer] [facility] [id number] ([id number]) Immature Grans (Abs) 0.0 {x10E3/uL} (Normal) Range: [...] with tomosynthesis Ava Murillo ULTRASOUND, LEFT BREAST ([id number])By: Marissa On: 20-Sep-2017 Intent Ava WANG CNP, Mary E SCREENING DIGITAL TOMOSYNTHESIS OF On: 20-Sep-2017 Intent BREAST ([id number])By: Ava Ann CNP, CNP, Mary E DEXA SCAN AXIAL SKELETON ([id number])By: On: 20-Sep-2017 Intent Ava Ann CNP, CNP, Mary E Instructions Name Dates Details Nonsmoker : How [...] information online - Detail Indication: Hypocalcemia Encounters Office Visit On: 28-Mar-2018 8:53 Encounter Reason: Sinusitis - Symptoms include nasal congestion, forehead pressure and cough. Onset was 4 day(s) ago. The patient describes this as worsening. Note for Sinusitis: Symptoms started 5 days ago with sore t End: 28-Mar-2018 14:08 hroat, cough-yellow/green, nasal drainage-green, nasal congestion, chest tightness, feels like has had fevers-but hasn't taken temp due to not having thermometer. No chills, SOB, CP. Has been using OTC products with little relief. Encounter Diagnosis: BMI 32.0-32.9,adult, Nonsmoker, Body aches, Facial [...] malignant neoplasm of breast) [facility] [employer]Jo-Radha Hightower; a guarantor
--- OUTSIDE RECORDS SUMMARY | 2018-06-15 18:33 | XMS RPT_ITS | Continuity of Care Document ---
:1965 Author Organization [facility] Address [address] [place] [address] Phone Care Team Providers Name Role Phone [...] Active Sinusitis, acute (J01.90, 461.9) Status: Active Unspecified Diagnosis Status: Active Medications Name Dates Details Augmentin 875-125 MG Oral Tablet 1 (one) Tablet bid for 14 days Quantity: 28 {Tablet} Refills: 0 Ordered:28-Mar-2018 Yulisa Leal Start : 28-Mar-2018 Active Comments:Take with food Benzonatate 200 MG Oral Capsule 1 (one) Capsule PO TID PRN for 7 days Quantity: 21 {Capsule} Refills: 0 Ordered:28-Mar-2018 Yulisa Leal Start : 28-Mar-2018 Active Cheratussin AC 100-10 MG/5ML Oral Syrup 4 Milliliter qhs prn for 0 days Quantity: 120 {Milliliter} Refills: 0 Ordered:29-Mar-2018 Ava Ann CNP, CNP, Mary E Start : 29-Mar-2018 Active PLEXUS products 1 qd Active Zyrtec [...] Discharge Instruction Result: Comments: See Note; NOTES: [facility] Medical Records Department [address] [place] [address] Discharge Instruction 02/03/18 0925 MR#: [id number] Acct: [id number] Name: LUIS HIGHTOWER Rep #: [id number] : 1965 52 From: Ian Staples MD PCP: Ava Ann NP Status: DEP ER ED Disposition - Plan for ED Patient: Disposition: Home or Assisted Living Chief Complaint: Fal l Instructions: ED Sprain Wrist, ED Contusion Elbow Prescriptions: Hydrocodone/Acetaminophen [[place] 5-325 Tablet] 1 ea PO Q6H PRN PRN #14 tab PRN Reason: Pain Referrals: Ava Ann NP-C [Primary Care Sanjuana ponce] - 1 Week if not improving Additional Instructions: Ice to all sore areas. Motrin for pain and swelling and Limited [place] for pain. Follow-up with your primary care provider if not improving t o be reevaluated. What to do if you have Problems For any increased pain, shortness of breath, bleeding, nausea or vomiting, chest pain, or any unexpected problems, contact your Primary Care Provide r. Call [facility] Registry ([phone]) or report to the closest Emergency Room. Call 911 if necessary. 02/03/18 1751 <Electronically signed by Ian Staples MD> Date ____ Ian Staples MD Cosigner Signature (If Indicated): Date CC: Ava Ann NP 03-Feb-2018 Emergency Department Summary Result: Comments: See Note; NOTES: [facility] Medical Records Department [address] [place] [address] Emergency Department Summary 02/03/18 0843 MR#: [id number] Acct: [id number] Name: LUIS HIGHTOWER Rep #: [id number] : 1965 52 From: Ian Staples MD [...] myself. Emergency Department C ourse and Treatment: [place] for pain and she requested something for [...] has an orthopedic surgeon she sees in [facility] and will follow up with him to determine if there is a nondisplaced radial head fracture or no t. Treatment Plan: Discharged home. Ice all sore areas. Motrin and Limited [place] for pain. Follow-up with your doctor if not improving. Disposition: Discharge Impression: Slipped on ice and fell x2 A cute left elbow rule out nondisplaced radial head fracture placed in a long-arm posterior splint Acute left wrist sprain This note was generated with Tissuetechation software. It may contain incorre ct words, spelling, and punctuation that were not noted in review of the chart prior to signing ED Disposition - Plan for ED Patient: Disposition: Home or Assisted Living Chief Complaint: Fall Instru ctions: ED Contusion Elbow, ED Sprain Wrist Prescriptions: Hydrocodone/Acetaminophen [[place] 5-325 Tablet] 1 ea PO Q6H PRN PRN #14 tab PRN Reason: Pain Referrals: Ava Ann, INSURANCE ASSOCIATE-C [Primary Care Provider] - 1 Week if not improving Additional Instructions: Ice to all sore areas. Motrin for pain and swelling and Limited [place] for pain. Follow-up with your primary care provider if not improving to be ree valuated. What to do if you have Problems For any increased pain, shortness of breath, bleeding, nausea or vomiting, chest pain, or any unexpected problems, contact your Primary Care Provider. Call [employer] [facility] ([phone]) or report to the closest Emergency Room. Call 911 if necessary. 02/03/18 1751 <Electronically signed by Ian Staples MD> Date Ian Staples MD Cosigner Signature (If Indicated): Date CC: Ava Ann NP 03-Feb-2018 Humerus min 2 Views Result: Comments: See Note; NOTES: [facility] Imaging Services [address] [place] [address] Humerus min 2 Views MR#: [id number] Acct: [id number] Name: LORRI HIGHTOWER Rep #: [id number] D OB: 1965 F 52 From: Myles West MD PCP: Ava Ann NP Status: REG ER Study: Humerus min 2 Views Date of Exam: 02/03/18 Exam# [id number] Ordering Dr: Ian Staples MD STUDY: X-RAY [...] Myles West MD at 9:41 EST Tel [phone], Service support , CC: Ava Ann NP; Ian Staples MD Technician Anatomic Pathology: Signed 03-Feb-2018 Elbow min 3 Views Result: Comments: See Note; NOTES: [facility] Imaging Services [address] [place] [address] Elbow min 3 Views MR#: [id number] Acct: [id number] Name: LORRI HIGHTOWER Rep #: [id number] : 1965 F 52 From: Myles West MD PCP: Ava Ann NP Status: REG ER Study: Elbow min 3 Views Date of Exam: 02/03/18 Exam# [id number] Ordering Dr: Ian Staples MD STUDY: X-RAY - LEFT ELB REASON FOR EXAM: Female, 52 years old. Elbow pain following a fall. TECHNIQUE: 3 view(s) of the elbow. COMPARISON: None. FINDINGS: Nondisplaced radial neck fra cture. Normal radiocapitellar and ulnotrochlear articulations. Joint effusion. RAD/Elbow min 3 Views IMPRESSION: There is a nondisplaced radial neck fracture with a joint effusion. Electronically Signed: Myles West MD at 9:42 EST Tel [phone], Service support , CC: Ava Ann NP; Ian Staples MD Technician Anatomic Pathology: Signed 03-Feb-2018 Wrist min 3 Views Result: Comments: See Note; NOTES: [facility] Imaging Services [address] [place] [address] Wrist min 3 Views MR#: [id number] Acct: [id number] Name: LORRI HIGHTOWER Rep #: [id number] : 1965 F 52 From: Myles West MD PCP: Ava Ann NP Status: REG ER Study: Wrist min 3 Views Date of Exam: 02/03/18 Exam# [id number] Ordering Dr: Ian Staples MD STUDY: X-RAY - LEFT I ST REASON FOR EXAM: Female, 52 years [...] Myles West MD at 9:43 EST Tel [phone], Service support , CC: Ava Ann NP; Ian Staples MD Technician Anatomic Pathology: Signed 01-Oct-2017 Breast Limited Unilateral Result: Comments: See Note; NOTES: [facility] Imaging Services [address] [place] [address] Breast Limited Unilateral MR#: [id number] Acct: [id number] Name: LORRI HIGHTWOER Rep #: [id number] : 1965 F 52 From: Myles West MD PCP: Ava Ann NP Status: REG CLI Study: Breast Limited Unilateral Date of Exam: 10/01/17 Exam# [id number] Ordering Dr: Ava Ann STUDY: UL TRASOUND [...] Myles West MD at 12:38 EDT Tel [phone], Service support , CC: Ava Ann NP Technician Anatomic Pathology: Signed 01-Oct-2017 DIAG MAMM W/CAD, BILAT Result: Comments: See Note; NOTES: [facility] Imaging Services [address] [place] [address] DIAG MAMM W/CAD, BILAT MR#: [id number] Acct: [id number] Name: LORRI HIGHTOWER Rep #: [id number] : 1965 F 52 From: Myles West MD PCP: Ava Ann NP Status: REG CLI Study: DIAG MAMM W/CAD, BILAT Date of Exam: 10/01/17 Exam# [id number] Ordering Dr: Ava Ann MAMMOGRAPHY - B [...] Myles West MD at 10:50 EDT Tel [phone], Service support , CC: Ava Ann NP Technician Anatomic Pathology: Signed Family History Unknown Family Member Name Dates Details Father Comments: , adenocarcinoma of lung, neck - squamous cell carcinoma, HTN, [place], high triglycerides Status: Active Mother Comments: unknown [...] kg/m2 Body Surface Area Calculated 2.1 m2 79-Rrw-133454:15 Temperature 97.5 f Pulse 98 /min Comments: [...] kg/m2 Body Surface Area Calculated 2.11 m2 2-Pfc-074655:21 Pulse 102 /min Comments: Pattern: Regular Respiration [...] 2.11 m2 Results Date Description Value Details 03-Pnq-670599:10 Lipid Panel ([id number]) Comments: September 24; PATIENT WAS FASTINGPERFORMED BY: [email or web address] [id number] LDL/HDL Ratio 2.3 {ratio} (Normal) Range: 0.0-3.2 Comments: LDL/HDL Ratio Men Women 1/2 Avg.Risk 1.0 1.5 Av g.Risk 3.6 3.2 2X Avg.Risk 6.2 5.0 3X Avg.Risk 8.0 6.1 LDL Cholesterol Calc 108 mg/dL (Abnormal) Range: 0-99 VLDL Cholesterol Gabriel 27 mg/dL (Normal) Range: 5-40 HDL Cholesterol 46 mg/dL (Normal) Triglycerides 135 mg/dL (Normal) Range: 0-149 Cholesterol, Total 181 mg/dL (Normal) Range: 100-199 :10 Metabolic Panel, Comprehensive Comments: September 24; PATIENT WAS FASTINGPERFORMED BY: [email or web address] [id number] ([id number]) ALT (SGPT) 16 [iU]/L (Normal) Range: 0-32 [...] 6-24 Glucose 94 mg/dL (Normal) Range: 65-99 19-Nrz-490344:10 TSH (THYROID STIMULATING Comments: September 24; PATIENT WAS FASTINGPERFORMED BY: [employer] [facility] [id number] HORMONE) ([id number]) TSH 2.570 {uIU/mL} (Normal) Range: 0.450-4.500 75-Qtv-688774:10 CBC, Platelets & Auto Diff Comments: to be done September 24; PATIENT WAS FASTINGPERFORMED BY: [email or web address] [facility] [id number] ([id number]) Immature Grans (Abs) 0.0 {x10E3/uL} (Normal) Range: [...] with tomosynthesis Ava Murillo ULTRASOUND, LEFT BREAST ([id number])By: Marissa On: 20-Sep-2017 Intent Ava WANG CNP, Mary E SCREENING DIGITAL TOMOSYNTHESIS OF On: 20-Sep-2017 Intent BREAST ([id number])By: Ava Ann CNP, CNP, Mary E DEXA SCAN AXIAL SKELETON ([id number])By: On: 20-Sep-2017 Intent Ava Ann CNP, CNP, [...] information online - Detail Indication: Hypocalcemia Encounters Annotation/Addendum On: 29-Mar-2018 16:05 Encounter Diagnosis: Unspecified Diagnosis End: 29-Mar-2018 16:08 [facility] Office Visit On: 28-Mar-2018 8:53 Encounter Reason: [...] malignant neoplasm of breast) [facility] SuttonJo-Radha Hightower; a guarantor
--- OUTSIDE RECORDS SUMMARY | 2018-06-15 18:33 | XMS RPT_ITS ---
:1965 Author Organization OHIP Care Team Providers Name Role Phone SHAI ZAMBRANO Attending Unavailable SHAI ZAMBRANO Referring Unavailable SHAI ZAMBRANO Attending Unavailable SHAI ZAMBRANO Attending Unavailable SHAI ZAMBRANO Referring Unavailable SHAI ZAMBRANO Referring Unavailable Ava Ann Attending Unavailable Ava Ann Referring Unavailable Ava Ann Consulting Unavailable Felix Harden Attending Unavailable Felix Harden Referring Unavailable Ava Ann Primary Care Unavailable Ian Staples Attending Unavailable Ava Ann Primary Care Unavailable Ava Ann Attending Unavailable Primay Care Physicia, No Primary Care Unavailable Ava Ann Attending Unavailable Primay Care Physicia, No Primary Care Unavailable PROBLEMS PROBLEMS DATE TYPE CONDITION / CODE ATTENDING STATUS SOURCE 02/09/2018 Active Pain in right NA Active [facility] knee / Other [place] M25.561(ICD-10) Repository 02/03/2018 Unknown S50.00XA - Ian Staples Active [place] [facility] elbow, initial Repository encounter / S50.00XA(ICD-10) 02/03/2018 Unknown S63.509A - Ian Staples Active [place] [facility] sprain of [facility] unspecified Repository wrist, initial encounter / S63.509A(ICD-10) PROCEDURES PROCEDURES No Procedure Records FoundRESULTS RESULTS Observed: 04/13/2018 Status: F Source: [place] CULTURE, NOSE 3:44 PM [facility] REPOSITORY Gram Stain Gram Stain 1+ White Blood Cells No organisms seen Nasoph. Cult Ampicillin can be used for Beta-Lactamase negative isolates. Trimeth/Sulfa, Chloramphenicol, Cefotaxime, Ciprofloxacin, Amoxicillin/Clavulanic Acid,and Oral 2nd/3rd Generation Cephlosporins are effective against both Beta-Lactamase positive and Beta-Lactamase negative isolates. If further sensitivity studies are desired, please contact the Microbiology Laboratory within 48 hours. ORGANISM 1: Haemophilus influenzae Amount Growth 1+ Beta Lactamase Positive Performed By: #### M100.0900 #### [facility] [address] [place], [address] PROGRESS Observed: 02/27/2018 Status: COMPLETED Source: [place] 9:15 PM [facility] REPOSITORY HNO ID: [id number] Author: Shai Zambrano Service: (none) Author Type: Physician Type: Progress Notes Filed: 02/27/2018 9:20 PM Note Text: FRACTURE FOLLOW-UP Ms. Hightower presents today for her follow-up visit from: Left radial head fracture She is three weeks post-injury and was last seen two weeks ago. History: PAIN EVALUATION 02/25/2018 Pain Score: 2 Pain Location: Elbow-Left Description: Aching Duration Amount of Time: - ongoing Frequency: Continuous Intervention: Cold;Relaxation;Positioning The patient denies swelling, warmth, discharge, drainage, fevers, chills, sweats. She reports compliance with therapy, sling/splint/ambulatory device/dressing/wound care, and the use of medications. She reports no change in past medical AND surgical history, medications, allergies, social history, family history and review of systems since last visit, with the exception of the following: None Radiographs: Not applicable Physical Examination: mild tenderness about the radial head 120 - 20 elbow flexion/extension 45 - 45 pronation/supination Positive axillary, musculocutaneous, median, ulna, and radial nerve function Positive distal pulses PROCEDURE: Not applicable Impression: 1. left Radial head fracture Plan: Intervention: Sling as needed for pain ROM exercises as discussed Avoid weight bearing on elbow or arm F/u for repeat clinical/radiographic evaluation . Shai Zambrano MD CNOV Observed: 02/25/2018 Status: COMPLETED Source: [place] 1:45 PM [facility] REPOSITORY Office Visit (ORMDNA) KERLINELINA WESTFALL ([id number]) 1965 F [facility] Date Time Provider Department 02/25/18 1:45 PM SHAI ZAMBRANO During your visit today, we recorded the following information about you: Nina LIMA 02/25/2018 1:59 PM Signed Patient presents with: Recheck: left elbow Shai Zambrano MD 02/27/2018 9:20 PM Signed FRACTURE FOLLOW-UP Ms. Hightower presents today for her follow-up visit from: Left radial head fracture She is three weeks post-injury and was last seen two weeks ago. History: PAIN EVALUATION 02/25/2018 Pain Score: 2 Pain Location: Elbow-Left Description: Aching Duration Amount of Time: - ongoing Frequency: Continuous Intervention: Cold;Relaxation;Positioning The patient denies swelling, warmth, discharge, drainage, fevers, chills, sweats. She reports compliance with therapy, sling/splint/ambulatory device/dressing/wound care, and the use of medications. She reports no change in past medical AND surgical history, medications, allergies, social history, family history and review of systems since last visit, with the exception of the following: None Radiographs: Not applicable Physical Examination: mild tenderness about the radial head 120 - 20 elbow flexion/extension 45 - 45 pronation/supination Positive axillary, musculocutaneous, median, ulna, and radial nerve function Positive distal pulses PROCEDURE: Not applicable Impression: 1. left Radial head fracture Plan: Intervention: Sling as needed for pain ROM exercises as discussed Avoid weight bearing on elbow or arm F/u for repeat clinical/radiographic evaluation . Shai Zambrano MD Referring Provider: SHAI ZAMBRANO [[id number]] Allergies As of Date: 02/25/2018 (No Known Allergies) Date Reviewed: 02/25/2018 Reviewed by: Nina Valadez CT - Fully Assessed Reason for Visit: Recheck [92] Cmt: left elbow Primary Visit Diagnosis:Closed nondisplaced fracture of neck of left radius with routine healing, subsequent encounter [S52.135D] Prescriptions as of 02/25/2018 Sig: TURMERIC ORAL Take by mouth. ACETAMINOPHEN 500 MG TABLET Take 1,000 mg by mouth every * IBUPROFEN 200 MG TABLET Take 200 mg by mouth every 6 * METHYLPREDNISOLONE 4 MG TABLE* Take 1 tablet by mouth as dir* MELOXICAM 7.5 MG TABLET Take 1 tablet by mouth once d* HYDROCODONE 5 MG-ACETAMINOPHE* Take 1-2 tablets by mouth chano* Problem List As Of Date 02/25/2018 Noted Resolved Arthritis of knee, left [M17.12] INVALID FOR*05/08/2016 Leg swelling [M79.89] INVALID FOR*05/08/2016 S/P knee replacement [Z96.659] INVALID FOR* Ankle sprain [S93.409A] INVALID FOR*05/08/2016 Knee contusion [S80.00XA] INVALID FOR*05/08/2016 Primary osteoarthritis of right knee [M17.11] INVALID FOR* Lateral epicondylitis [M77.10] INVALID FOR* Degenerative tear of medial meniscus [M23.205] INVALID FOR* Visit Notes: >> Nina Valadez CT Fri Feb 25, 2018 1:47 PM Status: Signed Patient presents with: Recheck: left elbow Encounter Status:Closed by SHAI ZAMBRANO MD on 02/27/18 PROGRESS Observed: 02/11/2018 Status: COMPLETED Source: [place] 12:44 PM [facility] RE[facility] HNO ID: [id number] Author: Shai Zambrano Service: (none) Author Type: Physician Type: Progress Notes Filed: 02/11/2018 1:00 PM Note Text: [id number] Ms. Hightower was last seen for right knee pain due to osteoarthritis nine months. had the following plan implemented given a prescription for meloxicam She presents today for evaluation of left elbow injury that occurred approximately a week ago as well as an increase in her right knee pain. Patient reports slipping and falling on some steps at home. She was seen in the emergency room at an outlying facility and placed into a posterior splint and given a sling. She is here for definitive care History: PAIN EVALUATION 02/09/2018 Pain Score: 3 Pain Location: Elbow-Left Description: Aching;Burning;Shooting Duration Amount of Time: 1 Duration Units: Weeks Frequency: Continuous Intervention: Cold;Medication;Positioning The patient denies swelling, warmth, discharge, drainage, fevers, chills, sweats. She reports compliance with therapy, sling/splint/ambulatory device/dressing/wound care, and the use of medications. Previous treatments have included none. She reports no change in past medical AND surgical history, medications, allergies, social history, family history and review of systems since last visit, with the exception of the following: PAST MEDICAL HISTORY Diagnosis Date - Arthritis of knee, left 01/31/2011 - Deaf Left ear - Hypoglycemia - Osteoarthritis - Patella dysplasia PAST SURGICAL HISTORY Procedure Laterality Date - KNEE SCOPE,DIAGNOSTIC Right 05/19/2016 Arthroscopy, knee - ORTHOPEDICS SURGERY HX - PAST SURGICAL HISTORY OF 6 left knee surgeries - REMOVAL OF TONSILS,<12 Y/O Tonsillectomy - TOTAL KNEE REPLACEMENT 12/11/11 left Current Outpatient Prescriptions on File Prior to Visit: acetaminophen (TYLENOL EXTRA STRENGTH) 500 mg tablet Take 1,000 mg by mouth every 8 hours as needed. HYDROcodone-acetaminophen (NORCO) 5-325 mg per tablet Take 1-2 tablets by mouth every 6 hours as needed for Pain. ibuprofen 200 mg tablet Take 200 mg by mouth every 6 hours as needed. methylPREDNISolone (MEDROL, SARAH,) 4 mg Dose-Pack Take 1 tablet by mouth as directed. As directed on package meloxicam (MOBIC) 7.5 mg tablet Take 1 tablet by mouth once daily. No current facility-administered medications on file prior to visit. ALLERGIES No Known Allergies Radiographs: Right knee films taken today moderate osteoarthritis of the medial compartment and patellofemoral joint. Left total knee arthroplasty components appear to be acceptably aligned with no signs of osteolysis 2. [place] show essentially nondisplaced radial neck fracture with some evidence of a joint effusion but no other intra-articular/intraosseous pathology Physical Examination: Inspection Skin No evidence of eythema, warmth, bruising, abrasions, scars, swelling, atrophy or deformity about bilateral lower extremities. Incision Positive: Well healed arthroscopic incision. Atrophy No evidence of muscular atrophy. Range of Motion Knee 0-115degrees Patella Decreased patellar mobility Palpation Effusion No effusion Tenderness medial joint line, medial patellar facet and lateral patellar facet Crepitance Positive palpable patellofemoral and medial compartment crepitance Meniscus Negative medial and lateral Matteo's test Stability Negative varus/valgus instability, negative Ly's, negative posterior drawer and negative Dial test Range of Motion: Elbow flexion/extension 10-110 degrees degrees. Forearm pronation/supination 45-45 degrees degrees. Wrist flexion/wrist extension WNL degrees. Radial deviation/ulnar deviation WNL degrees. MCP flexion/extension WNL degrees. IP flexion/extension WNL degrees. Palpation: Positive tenderness to palpation: radial head Stability: Not tested due to fracture. Special Tests: Elbow Tinnels: negative Ulnar nerve subluxation: negative Cervical Spine: Appropriate range of motion, negative midline and paraspinal muscle tenderness, negative stepoff, and negative Spurling's test. Normal strength, tone, and stability of the remainder of both upper extremities distally. Neurologic Exam: Intact lateral deltoid(C5), lateral forearm(C6), thumb(C6), middle finger(C7), medial forearm(C8), little finger(C8), and medial arm(T1) sensation bilaterally. Intact biceps (C5), brachioradialis (C6), triceps (C7) reflexes bilaterally. Vascular: 2+ radial pulses, both upper extremities. Procedure: Not applicable Impression: 1. right knee moderate degenerative joint disease-likely aggravated as a result of her fall 2. left Radial neck fracture-nondisplaced. Symptomatically and sling and gradually increase range of motion and activity as healing progresses Plan: Continue current treatment. Sling for comfort left elbow Begin gentle range of motion exercises as discussed Avoid weightbearing, axial loading or lifting left arm Continue local measures for right knee Continue current measures Shai Zambrano MD PROGRESS Observed: 02/09/2018 Status: COMPLETED Source: [place] 12:24 PM [facility] REPOSITORY HNO ID: [id number] Author: Mason (Ct) CLARENCE Boothe Service: (none) Author Type: Clinical Partition Assembler Type: Progress Notes Filed: 02/09/2018 12:24 PM Note Text: NAME:Lina Hightower DATE: February 09, 2018 [facility]CF#: [id number] Lower Extremity X-Ray(s): Knee, AP / Lat / Tunne / Merchant Right and Wt. Bearing COMPLETED TECH ID SIGN: MASON BOOTHE XR KNEE 4V AP/PA Observed: 02/09/2018 Status: F Source: [place] BOTH+LAT/ANURAG RT 12:21 PM [facility] REPOSITORY * * *Final Report* * * DATE OF EXAM: Feb 09 2018 12:21PM PJ [id number] - XR KNEE 4V AP/PA BOTH+LAT/ANURAG RT / PROCEDURE REASON: M25.561-Acute pain of right knee * * * * Physician Interpretation * * * * EXAMINATION: XR KNEE 4V AP/PA BOTH+LAT/ANURAG RT CLINICAL HISTORY: RIGHT KNEE PAIN Acute pain of right knee Technique: XR KNEE 4V AP/PA BOTH+LAT/ANURAG RT -- RIGHT knee with 4 views on 4 images Comparison: 01/22/2017 RESULT: No acute fracture or dislocation is identified. There is narrowing of the medial knee compartment. Tricompartmental degenerative spurring is present. An enthesophyte is noted at the quadriceps tendon insertion on the patella. A small suprapatellar joint effusion is suspected. Note is made of a left knee arthroplasty. IMPRESSION: Tricompartmental degenerative changes of the right knee, most significant in the medial compartment. Vp Scientific Affairs: PSCB Transcribe Date/Time: Feb 09 2018 12:25P Dictated by : TUCKER BELL MD This examination was interpreted and the report reviewed and electronically signed by: TUCKER BELL MD on Feb 09 2018 12:27PM EST [id number] CNOV Observed: 02/09/2018 Status: COMPLETED Source: [place] 11:15 AM [facility] REPOSITORY Office Visit (ORMDNA) LINA HIGHTOWER ([id number]) 1965 F [facility] Date Time Provider Department 02/09/18 11:15 AM SHAI ZAMBRANO During your visit today, we recorded the following information about you: Nina Valadez CT 02/09/2018 11:57 AM Signed Patient presents with: ED Follow Up: left elbow Shai Zambrano MD 02/11/2018 1:00 PM Signed [id number] Ms. Hightower was last seen for right knee pain due to osteoarthritis nine months. had the following plan implemented given a prescription for meloxicam She presents today for evaluation of left elbow injury that occurred approximately a week ago as well as an increase in her right knee pain. Patient reports slipping and falling on some steps at home. She was seen in the emergency room at an outlying facility and placed into a posterior splint and given a sling. She is here for definitive care History: PAIN EVALUATION 02/09/2018 Pain Score: 3 Pain Location: Elbow-Left Description: Aching;Burning;Shooting Duration Amount of Time: 1 Duration Units: Weeks Frequency: Continuous Intervention: Cold;Medication;Positioning The patient denies swelling, warmth, discharge, drainage, fevers, chills, sweats. She reports compliance with therapy, sling/splint/ambulatory device/dressing/wound care, and the use of medications. Previous treatments have included none. She reports no change in past medical AND surgical history, medications, allergies, social history, family history and review of systems since last visit, with the exception of the following: PAST MEDICAL HISTORY Diagnosis Date - Arthritis of knee, left 01/31/2011 - Deaf Left ear - Hypoglycemia - Osteoarthritis - Patella dysplasia PAST SURGICAL HISTORY Procedure Laterality Date - KNEE SCOPE,DIAGNOSTIC Right 05/19/2016 Arthroscopy, knee - ORTHOPEDICS SURGERY HX - PAST SURGICAL HISTORY OF 6 left knee surgeries - REMOVAL OF TONSILS,<12 Y/O Tonsillectomy - TOTAL KNEE REPLACEMENT 12/11/11 left Current Outpatient Prescriptions on File Prior to Visit: acetaminophen (TYLENOL EXTRA STRENGTH) 500 mg tablet Take 1,000 mg by mouth every 8 hours as needed. HYDROcodone-acetaminophen (NORCO) 5-325 mg per tablet Take 1-2 tablets by mouth every 6 hours as needed for Pain. ibuprofen 200 mg tablet Take 200 mg by mouth every 6 hours as needed. methylPREDNISolone (MEDROL, SARAH,) 4 mg Dose-Pack Take 1 tablet by mouth as directed. As directed on package meloxicam (MOBIC) 7.5 mg tablet Take 1 tablet by mouth once daily. No current facility-administered medications on file prior to visit. ALLERGIES No Known Allergies Radiographs: Right knee films taken today moderate osteoarthritis of the medial compartment and patellofemoral joint. Left total knee arthroplasty components appear to be acceptably aligned with no signs of osteolysis 2. [place] essentially nondisplaced radial neck fracture with some evidence of a joint effusion but no other intra-articular/intraosseous pathology Physical Examination: Inspection Skin No evidence of eythema, warmth, bruising, abrasions, scars, swelling, atrophy or deformity about bilateral lower extremities. Incision Positive: Well healed arthroscopic incision. Atrophy No evidence of muscular atrophy. Range of Motion Knee 0-115degrees Patella Decreased patellar mobility Palpation Effusion No effusion Tenderness medial joint line, medial patellar facet and lateral patellar facet Crepitance Positive palpable patellofemoral and medial compartment crepitance Meniscus Negative medial and lateral Matteo's test Stability Negative varus/valgus instability, negative Ly's, negative posterior drawer and negative Dial test Range of Motion: Elbow flexion/extension 10-110 degrees degrees. Forearm pronation/supination 45-45 degrees degrees. Wrist flexion/wrist extension WNL degrees. Radial deviation/ulnar deviation WNL degrees. MCP flexion/extension WNL degrees. IP flexion/extension WNL degrees. Palpation: Positive tenderness to palpation: radial head Stability: Not tested due to fracture. Special Tests: Elbow Tinnels: negative Ulnar nerve subluxation: negative Cervical Spine: Appropriate range of motion, negative midline and paraspinal muscle tenderness, negative stepoff, and negative Spurling's test. Normal strength, tone, and stability of the remainder of both upper extremities distally. Neurologic Exam: Intact lateral deltoid(C5), lateral forearm(C6), thumb(C6), middle finger(C7), medial forearm(C8), little finger(C8), and medial arm(T1) sensation bilaterally. Intact biceps (C5), brachioradialis (C6), triceps (C7) reflexes bilaterally. Vascular: 2+ radial pulses, both upper extremities. Procedure: Not applicable Impression: 1. right knee moderate degenerative joint disease-likely aggravated as a result of her fall 2. left Radial neck fracture-nondisplaced. Symptomatically and sling and gradually increase range of motion and activity as healing progresses Plan: Continue current treatment. Sling for comfort left elbow Begin gentle range of motion exercises as discussed Avoid weightbearing, axial loading or lifting left arm Continue local measures for right knee Continue current measures Shai Zambrano MD Referring Provider: ER STAFF [[id number]] Allergies As of Date: 02/09/2018 (No Known Allergies) Date Reviewed: 02/09/2018 Reviewed by: Nina Valadez CT - Fully Assessed Reason for Visit: ED Follow Up [973] Cmt: left elbow Primary Visit Diagnosis:Acute pain of right knee [M25.561] Other Visit Diagnoses:Primary osteoarthritis of right knee [M17.11] Closed nondisplaced fracture of neck of left radius, initial encounter [S52.806A] Order(s):XR KNEE GENERAL 4V AP BOTH/PA BOTH/LAT/MERC RT [[id number]] Order #: [id number] FUTURE Prescriptions as of 02/09/2018 Sig: ACETAMINOPHEN 500 MG TABLET Take 1,000 mg by mouth every * HYDROCODONE 5 MG-ACETAMINOPHE* Take 1-2 tablets by mouth chano* IBUPROFEN 200 MG TABLET Take 200 mg by mouth every 6 * TURMERIC ORAL Take by mouth. MELOXICAM 7.5 MG TABLET Take 1 tablet by mouth once d* METHYLPREDNISOLONE 4 MG TABLE* Take 1 tablet by mouth as dir* Problem List As Of Date 02/09/2018 Noted Resolved Arthritis of knee, left [M17.12] INVALID FOR*05/08/2016 Leg swelling [M79.89] INVALID FOR*05/08/2016 S/P knee replacement [Z96.659] INVALID FOR* Ankle sprain [S93.409A] INVALID FOR*05/08/2016 Knee contusion [S80.00XA] INVALID FOR*05/08/2016 Primary osteoarthritis of right knee [M17.11] INVALID FOR* Lateral epicondylitis [M77.10] INVALID FOR* Degenerative tear of medial meniscus [M23.205] INVALID FOR* Visit Notes: >> Nina Valadez CT WedFeb 09, 2018 11:31 AM Status: Signed Patient presents with: ED Follow Up: left elbow Encounter Status:Closed by SHAI ZAMBRANO MD on 02/11/18 EMERGENCY DEPARTMENT Observed: 02/03/2018 Status: F Source: [place] SUMMARY 5:51 PM [facility] REPOSITORY [facility] Medical Records Department [address] [place] [address] Emergency Department Summary 02/03/18 0843 MR#: [id number] Acct: [id number] Name: LUIS HIGHTOWER Rep #: [id number] : 1965 52 From: Ian Staples MD PCP: Ava Ann NP Status: DEP ER - ER Visit Summary Date of Service: 02/03/18 Chief Complaint: Slipped and fell on the ice x2 History of Present Illness: The patient [...] elbow and left wrist. Again she did not hit her head. She is left- hand dominant. She is never had surgery to [...] signs. Pelvic girdle intact. She has full range of motion to both hips. She has range of motion of both knees. Prior left knee replacement scar. Both ankles and feet are nontender. Dorsi and plantar flexion intact. Back is nontender. I nontender. Right upper extremity is nontender. Left shoulder [...] deficits. Test Results: Left elbow x-ray (3 views ) shows no acute fracture or bony abnormality. Left humerus shows no acute abnormality. 2 views. Left wrist x-ray view shows no acute abnormality. Films were read by myself. Emergency Department Course and Treatment: [place] for pain and she requested something for nausea will be given Zofran. Repeat exam at 12 11 patient is doing well. I discussed and went over all x-rays with her. Abdomen patient was discharged radiologist was able to evaluate the films and is a concern is a nondisplaced radial head fracture. I reviewed his films again I specifically do not see that but had the patient return placed in a long-arm posterior splint for immobilization. She has an orthopedic surgeon she sees in [facility] and will follow up with him to determine if there is a nondisplaced radial head fracture or not. Treatment Plan: Discharged home. Ice all sore areas. Motrin and Limited [place] for pain. Follow-up with your doctor if not improving. Disposition: Discharge Impression: Slipped on ice and fell x2 Acute left elbow rule out nondisplaced radial head fracture placed in a long-arm posterior splint Acute left wrist sprain This note was generated with [employer] dictation software. It may contain incorrect words, spelling, and punctuation that were not noted in review of the chart prior to signing ED Disposition - Plan for ED Patient: Disposition: Home or Assisted Living Chief Complaint: Fall Instructions: ED Contusion Elbow, ED Sprain Wrist Prescriptions: Hydrocodone/Acetaminophen [[place] 5-325 Tablet] 1 ea PO Q6H PRN PRN #14 tab PRN Reason: Pain Referrals: Ava Ann, [facility] [Primary Care Provider] - 1 Week if not improving Additional Instructions: Ice to all sore areas. Motrin for pain and swelling and Limited [place]eca for pain. Follow-up with your primary care provider if not improving to be reevaluated. What to do if you have Problems For any increased pain, shortness of breath, bleeding, nausea or vomiting, chest pain, or any unexpected problems, contact your Primary Care Provider. Call [facility] ([phone]) or report to the closest Emergency Room. Call 911 if necessary. 02/03/181750 <Electronically signed by Ian Staples MD> Date Ian Staples MD Cosigner Signature (If Indicated): Date CC: Ava Ann NP DISCHARGE INSTRUCTION Observed: 02/03/2018 Status: F Source: [place] 5:51 PM [facility] REPOSITORY [facility] Medical Records Department [address] [place] [address] Discharge Instruction 02/03/18 0925 MR#: [id number] Acct: [id number] Name: LUIS HIGHTOWER Rep #: [id number] : 1965 52 From: Ian Staples MD PCP: Ava Ann NP Status: DEP ER ED Disposition - Plan for ED Patient: Disposition: Home or Assisted Living Chief Complaint: Fall Instructions: ED Sprain Wrist, ED Contusion Elbow Prescriptions: Hydrocodone/Acetaminophen [[place] 5-325 Tablet] 1 ea PO Q6H PRN PRN #14 tab PRN Reason: Pain Referrals: Ava Ann, [facility] [Primary Care Provider] - 1 Week if not improving Additional Instructions: Ice to all sore areas. Motrin for pain and swelling and Limited [place] for pain. Follow-up with your primary care provider if not improving to be reevaluated. What to do if you have Problems For any increased pain, shortness of breath, bleeding, nausea or vomiting, chest pain, or any unexpected problems, contact your Primary Care Provider. Call Doctors Registry ([phone]) or report to the closest Emergency Room. Call 911 if necessary. 02/03/181750 <Electronically signed by Ian Staples MD> Date Ian Staples MD Cosigner Signature (If Indicated): Date CC: Ava Ann NP HUMERUS MIN 2 VIEWS Observed: 02/03/2018 Status: F Source: [place] 8:50 AM [facility] HOSPITAL REPOSITORY [facility] Imaging Services [address] [place] [address] Humerus min 2 Views MR#: [id number] Acct: [id number] Name: LINA HIGHTOWER Rep #: [id number] : 1965 F 52 From: Myles West MD PCP: Ava Ann NP Status: REG ER Study: Humerus min 2 Views Date of Exam: 02/03/18 Exam# [id number] Ordering Dr: Ian Staples MD STUDY: X-RAY - LEFT HUMERUS REASON FOR EXAM: Female, 52 years old. Elbow pain following a fall. TECHNIQUE: 2 view(s) of the humerus. COMPARISON: None. FINDINGS: Normal visualized humerus. There is no demonstrated fracture or osseous destructive process. There is no demonstrated soft tissue abnormality. RAD/Humerus min 2 Views IMPRESSION: Normal x-ray examination of the humerus. Electronically Signed: Myles West MD at 9:41 EST Tel [phone], Service support , CC: Ava Ann NP; Ian Staples MD Vp Scientific Affairs: Signed ELBOW MIN 3 VIEWS Observed: 02/03/2018 Status: F Source: [place] 8:43 AM [facility] HOSPITAL REPOSITORY [facility] Imaging Services [address] [place] [address] Elbow min 3 Views MR#: [id number] Acct: [id number] Name: LINA HIGHTOWER Rep #: [id number] : 1965 F 52 From: Myles West MD PCP: Ava Ann NP Status: REG ER Study: Elbow min 3 Views Date of Exam: 02/03/18 Exam# [id number] Ordering Dr: Ian Staples MD STUDY: X-RAY - LEFT ELBOW REASON FOR EXAM: Female, 52 years old. Elbow pain following a fall. TECHNIQUE: 3 view(s) of the elbow. COMPARISON: None. FINDINGS: Nondisplaced radial neck fracture. Normal radiocapitellar and ulnotrochlear articulations. Joint effusion. RAD/Elbow min 3 Views IMPRESSION: There is a nondisplaced radial neck fracture with a joint effusion. Electronically Signed: Myles West MD at 9:42 EST Tel [phone], Service support , CC: Ava Ann NP; Ian Staples MD Vp Scientific Affairs: Signed WRIST MIN 3 VIEWS Observed: 02/03/2018 Status: F Source: [place] 8:43 AM [facility] REPOSITORY [facility] Imaging Services [address] [place] [address] Wrist min 3 Views MR#: [id number] Acct: [id number] Name: LINA HIGHTOWER Rep #: [id number] : 1965 F 52 From: Myles West MD PCP: Ava Ann NP Status: REG ER Study: Wrist min 3 Views Date of Exam: 02/03/18 Exam# [id number] Ordering Dr: Ian Staples MD STUDY: X-RAY - LEFT WRIST REASON FOR EXAM: Female, 52 years old. Pain following a fall. TECHNIQUE: 3 view(s) of the wrist were obtained. COMPARISON: None. FINDINGS: Normal visualized distal radius and ulna. Normal radiocarpal articulation. Normal distal radioulnar articulation. Normal carpal bones. Normal carpal articulations. Normal carpometacarpal articulation of the thumb. Normal second through fifth carpometacarpal articulations. Normal visualized metacarpal bones. The soft tissue structures are unremarkable. RAD/Wrist min 3 Views IMPRESSION: Normal x-ray examination of the wrist. Electronically Signed: Myles West MD at 9:43 EST Tel [phone], Service support , CC: Ava Ann NP; Ian Staples MD Vp Scientific Affairs: Signed XR OUTSIDE CD DICOM Observed: 02/03/2018 Status: F Source: [facility] 12:00 AM [facility] REPOSITORY Images were obtained outside of [facility] [id number] DIAG MAMM W/CAD, Observed: 10/01/2017 Status: F Source: [place] BILAT 9:00 AM [facility] REPOSITORY [facility] Imaging Services [address] [place] [address] DIAG MAMM W/CAD, BILAT MR#: [id number] Acct: [id number] Name: LINA HIGHTOWER Rep #: [id number] : 1965 F 52 From: Myles West MD PCP: Ava Ann NP Status: REG CLI Study: DIAG MAMM W/CAD, BILAT Date of Exam: 10/01/17 Exam# [id number] Ordering Dr: Ava Ann MAMMOGRAPHY - BILATERAL DIAGNOSTIC REASON FOR EXAM: Female, 52 years old. Left breast skin changes. PERTINENT HISTORY: Non-contributory. TECHNIQUE: Digital bilateral breast lesley (3D mammographic acquisition) in the CC and MLO projections. 2-D mediolateral oblique (MLO) and craniocaudad (CC) views of both breasts were obtained. CAD: Full Field Digital Mammography with Computer Added Detection was performed. COMPARISON: None. Baseline examination. FINDINGS: Breast Composition: There are scattered areas of fibroglandular density. There is a 6.8 mm well-defined nodule in the inferior medial aspect of the left breast as seen on the craniocaudad view. This is not well seen on the MLO view. Correlation with ultrasound is recommended. No other significant abnormalities are identified. BI/DIAG MAMM W/CAD, BILAT IMPRESSION: Small nodular [...] Myles West MD at 10:50 EDT Tel [phone], Service support , CC: Ava Ann NP Vp Scientific Affairs: Signed BREAST LIMITED Observed: 10/01/2017 Status: F Source: [place] UNILATERAL 9:00 AM [facility] REPOSITORY [facility] Imaging Services [address] [place] [address] Breast Limited Unilateral MR#: [id number] Acct: [id number] Name: LINA HIGHTOWER Rep #: [id number] : 1965 F 52 From: Myles West MD PCP: Ava Ann NP Status: REG CLI Study: Breast Limited Unilateral Date of Exam: 10/01/17 Exam# [id number] Ordering Dr: Ava Ann STUDY: ULTRASOUND BREAST - LEFT REASON FOR EXAM: Female, 52 years old. Abnormal screening mammogram. TECHNIQUE: Axial and longitudinal images of the LEFT breast were performed with a high resolution ultrasound transducer. COMPARISON: Comparison is made with prior mammogram done earlier today. FINDINGS: LEFT Breast: There are 2 small adjacent cysts at the 9:00 position breast at 3 cm from the nipple. The larger measures 3 mm x 3 mm x 3 mm. Skin abnormality is at the 3:00 position in the breast. No sonographic abnormality is seen at that site. US/Breast Limited Unilateral IMPRESSION: 2 subcentimeters cyst at the 9:00 position the breast at 3 cm from nipple. ASSESSMENT CATEGORY: BIRADS Category 2: Benign. A letter regarding these results will be sent to the patient by the facility within 30 days. Electronically Signed: Myles West MD at 12:38 EDT Tel [phone], Service support , CC: Ava Ann NP Vp Scientific Affairs: Signed PROGRESS Observed: 04/24/2017 Status: COMPLETED Source: [place] 2:30 PM [facility] REPOSITORY HNO ID: [id number] Author: Shai Zambrano Service: (none) Author Type: Physician Type: Progress Notes Filed: 04/24/2017 2:36 PM Note Text: [id number]-UP Ms. Hightower was last seen for right knee pain secondary to osteoarthritis two months. had the following plan implemented cortisone injection She presents today for routine follow-up. She also complains of some soreness in the left knee. This is the knee for which she underwent total knee arthroplasty 5 years ago History: PAIN EVALUATION 03/26/2017 Pain Score: 2 Pain Location: Knee-Right Description: Aching Duration Amount of Time: - ongoing Frequency: Intermittent Intervention: Medication;Relaxation The patient denies swelling, warmth, discharge, drainage, fevers, chills, sweats. She reports compliance with therapy, sling/splint/ambulatory device/dressing/wound care, and the use of medications. Previous treatments have included Rx NSAIDs, steroid injections and viscosupplementation. She reports no change in past medical AND surgical history, medications, allergies, social history, family history and review of systems since last visit, with the exception of the following: None Radiographs: Lateral view of left knee showed intact arthroplasty components with some narrowing of the patello femoral joint. Of note the patella was not resurfaced Last visits AP view of the knee show intact arthroplasty components with no loosening Physical Examination: Inspection Skin No evidence of eythema, warmth, bruising, abrasions, scars, swelling, atrophy or deformity about bilateral lower extremities. Incision Positive: Well healed anterior midline and arthroscopic incision. Atrophy No evidence of muscular atrophy. Range of Motion Knee 0-120 degrees Patella Decreased patellar mobility Palpation Effusion No effusion Tenderness medial patellar facet and lateral patellar facet Crepitance Negative palpable/audible patellofemoral, medial or lateral compartment crepitance Meniscus Negative medial and lateral Matteo's test Stability Negative varus/valgus instability, negative Ly's, negative posterior drawer and negative Dial test Procedure: Not applicable Impression: 1. right knee moderate degenerative joint disease 2. left knee is stable total knee arthroplasty with possible early wear of the patellar articular surface is in etiology of her discomfort Plan: Medication: Mobic 7.5mg - 15mg PO q Day with meals. Follow-up for repeat clinical evaluation Shai Zambrano MD ALLERGIES ALLERGIES DATE TYPE / CODE NAME / CODE REACTION SEVERITY SOURCE 02/03/2018 Drug No Known Unknown [facility] Allergy/416 Allergies/U98411 Hospital 015589(SNOM 0388(RXNORM) Repository ED CT) Drug NO KNOWN [facility] Class/48467 ALLERGIES Main [place] 1003(SNOMED Repository CT) ENCOUNTERS ENCOUNTERS ADMIT/DISCHARGE ACCOUNT ADMITTING ENCOUNTER LOCATION SOURCE NUMBER CLASS 04/13/2018 [id number] Ambulatory [facility] ing:LABSPEC Repository 03/28/2018 [id number] Ambulatory Building:[facility] Practices Repository 02/25/2018/03/01/20 [id number] Ambulatory [address] Repository 02/09/2018/02/10/20 [id number] Ambulatory [address] Other [place] Repository 02/09/2018/03/24/19 [id number] Ambulatory [address] Main [place] Repository 02/03/2018/02/04/20 [id number] Emergency [address] ing:ED Repository 10/01/2017 [id number] Ambulatory [facility] ing:OPBI Repository 09/30/2017 [id number] Ambulatory [facility] ing:OPBD Repository 03/26/2017/04/27/19 [id number] Ambulatory [address] Repository PAYERS PAYERS ENCOUNTER GUARANTOR PAYER SUBSCRIBER SOURCE 04/13/2018 LUIS HIGHTOWER[address] Insurance:MEDICAL [facility] [id number] Number: Repository [address]Ypz: 330 [id number] [phone] (HP) Date:0500-49-65QD [address] [place] [id number]: 04/13/2018 [facility]SELF [facility] Number: Effective Repository Date:2018-04-13 03/28/2018 Nury Primary [facility] LambertDOB: Insurance:Medical LambertDOB: [facility] Number: [id number] [place] [id number] [place], [place] Date:6359-58-01[place]um[place], [place] [address]Wfz: (330) Name:[facility] [address] [address]Pnw: (HP) [address], [place] [phone] (HP) [id number]: 02/03/2018 LUIS Primary Insurance:ANISA BISWAS E MUTUAL TPAPolicy LAMBERTDOB: [facility] Number: [id number] [place], [place] [id number] Repository [address]Iwz: (330) Date:7500-39-44CP [phone] () [address]XNQTEQ, [place] [address]DB: CHECK WEBSITE 02/03/2018 Secondary NOT GIVENUNK [place] Insurance:SELF PAY [facility] Number: Effective Repository Date:2018-02-03 10/01/2017 Lina Garcia Primary Insurance:MED JANEE LAMBERTDOB: Kami Ipylnee411 E MUTUAL TPAPolicy [id number] [facility] Number: [place], [place] [id number] Repository [address]Duc: (330) Date:2620-40-97IS [phone] () [address]UTFJYQCD, [place] [address]CQ: CHECK WEBSITE 10/01/2017 Secondary NOT GIVENUNK Kami Insurance:SELF PAY [facility] Number: Effective Repository Date:2017-09-21 09/30/2017 Lina Garcia Primary Insurance:MED MANJU [place] [id number] E MUTUAL TPAPolicy LAMBERTDOB: [facility] Number: [id number] [id number] Repository [address]Akh: (330) Date:7353-68-89BW [phone] () [address]NSPSWQGX, [place] [address]HE: CHECK WEBSITE 09/30/2017 Secondary NOT GIVENUNK [place] Insurance:SELF PAY [facility] Number: Effective Repository Date:2017-09-21
--- OUTSIDE RECORDS SUMMARY | 2018-06-15 18:33 | XMS RPT_ITS | Continuity of Care Document ---
:1965 Author Organization [facility] Address [address] [place] [address] Phone Care Team Providers Name Role Phone Ava Ann CNP Unavailable CameronTimo sanz Unavailable Brooklyn Hunt Unavailable Unavailable Unavailable Unavailable Problems Name Dates Details Artificial knee joint present, left (Z96.652, V43.65) Status: Active Bilateral breast cysts (N60.01, 610.0) Comments: from mammogram, to repeat in a year Status: Active BMI 32.0-32.9,adult (Z68.32, V85.32) Status: Active Breast skin changes (R23.4, 782.8) Comments: at posterio 3 oclock position Status: Active Deliveries (Parity) Comments: 3. had gestational diabetes Status: Active Encounter for screening mammogram for breast cancer (Renamed from Encounter for screening mammogram for malignant neoplasm of breast) (Z12.31, V76.12) Status: Active History of Fen Fen use Comments: was on redux, fen fen Status: Active Hypocalcemia (E83.51, 275.41) Comments: normal Status: Active Nasal congestion (R09.81, 478.19) Status: Active Nonsmoker (Z78.9, V49.89) Status: Active Postmenopausal (Renamed from Postmenopausal status) (Z78.0, V49.81) Status: Active Pregnancies () Comments: 3. Status: Active Right knee pain (M25.561, 719.46) Status: Active Sinusitis, acute (J01.90, 461.9) Status: Active Medications Name Dates Details Augmentin 875-125 MG Oral Tablet 1 (one) Tablet bid for 14 days Quantity: 28 {Tablet} Refills: 0 Ordered:15-Feb-2018 Ava Ann CNP, CNP, Mary E Start : 15-Feb-2018 Active PLEXUS products 1 qd Active Zyrtec [...] Discharge Instruction Result: Comments: See Note; NOTES: [facility] Medical Records Department [address] [place] [address] Discharge Instruction 02/03/18 0925 MR#: [id number] Acct: [id number] Name: LUIS HIGHTOWER Rep #: [id number] : 1965 52 From: Ian Staples MD PCP: Ava Ann NP Status: DEP ER ED Disposition - Plan for ED Patient: Disposition: Home or Assisted Living Chief Complaint: Fal l Instructions: ED Sprain Wrist, ED Contusion Elbow Prescriptions: Hydrocodone/Acetaminophen [[place] 5-325 Tablet] 1 ea PO Q6H PRN PRN #14 tab PRN Reason: Pain Referrals: Ava Ann, [facility] [Primary Care Sanjuana ponce] - 1 Week if not improving Additional Instructions: Ice to all sore areas. Motrin for pain and swelling and Limited [place] for pain. Follow-up with your primary care provider if not improving t o be reevaluated. What to do if you have Problems For any increased pain, shortness of breath, bleeding, nausea or vomiting, chest pain, or any unexpected problems, contact your Primary Care Provide r. Call [facility] Registry ([phone]) or report to the closest Emergency Room. Call 911 if necessary. 02/03/18 9624 <Electronically signed by Ian Staples MD> Date ____ Ian Staples MD Cosigner Signature (If Indicated): Date CC: Ava Ann NP 03-Feb-2018 Emergency Department Summary Result: Comments: See Note; NOTES: [facility] Medical Records Department [address] [place] [address] Emergency Department Summary 02/03/18 0843 MR#: [id number] Acct: [id number] Name: LUIS HIGHTOWER Rep #: [id number] : 1965 52 From: Ian Staples MD [...] myself. Emergency Department C ourse and Treatment: Gold Hill for pain and she requested something for [...] has an orthopedic surgeon she sees in [facility] and will follow up with him to determine if there is a nondisplaced radial head fracture or no t. Treatment Plan: Discharged home. Ice all sore areas. Motrin and Limited [place] for pain. Follow-up with your doctor if not improving. Disposition: Discharge Impression: Slipped on ice and fell x2 A cute left elbow rule out nondisplaced radial head fracture placed in a long-arm posterior splint Acute left wrist sprain This note was generated with HiMom dictation software. It may contain incorre ct words, spelling, and punctuation that were not noted in review of the chart prior to signing ED Disposition - Plan for ED Patient: Disposition: Home or Assisted Living Chief Complaint: Fall Instru ctions: ED Contusion Elbow, ED Sprain Wrist Prescriptions: Hydrocodone/Acetaminophen [[place] 5-325 Tablet] 1 ea PO Q6H PRN PRN #14 tab PRN Reason: Pain Referrals: Ava Ann NP-C [Primary Care Provider] - 1 Week if not improving Additional Instructions: Ice to all sore areas. Motrin for pain and swelling and Limited [place] for pain. Follow-up with your primary care provider if not improving to be ree valuated. What to do if you have Problems For any increased pain, shortness of breath, bleeding, nausea or vomiting, chest pain, or any unexpected problems, contact your Primary Care Provider. Call [facility] ([phone]) or report to the closest Emergency Room. Call 911 if necessary. 02/03/18 1751 <Electronically signed by Ian Staples MD> Date Ian Staples MD Cosigner Signature (If Indicated): Date CC: Ava Ann NP 03-Feb-2018 Humerus min 2 Views Result: Comments: See Note; NOTES: [facility] Imaging Services [address] [place] [address] Humerus min 2 Views MR#: [id number] Acct: [id number] Name: LORRI HIGHTOWER Rep #: [id number] OB: 1965 F 52 From: Myles West MD PCP: Ava Ann NP Status: REG ER Study: Humerus min 2 Views Date of Exam: 02/03/18 Exam# [id number] Ordering Dr: Ian Staples MD STUDY: X-RAY [...] Myles West MD at 9:41 EST Tel [phone], Service support , CC: Ava Ann NP; Ian Staples MD Rn Imcu: Signed 03-Feb-2018 Elbow min 3 Views Result: Comments: See Note; NOTES: [facility] Imaging Services [address] [place] [address] Elbow min 3 Views MR#: [id number] Acct: [id number] Name: LORRI HIGHTOWER Rep #: [id number] : 1965 F 52 From: Myles West MD PCP: Ava Ann NP Status: REG ER Study: Elbow min 3 Views Date of Exam: 02/03/18 Exam# [id number] Ordering Dr: Ian Staples MD STUDY: X-RAY [...] Myles West MD at 9:42 EST Tel [phone], Service support , CC: Ava Ann NP; Ian Staples MD Rn Imcu: Signed 03-Feb-2018 Wrist min 3 Views Result: Comments: See Note; NOTES: [facility] Imaging Services [address] [place] [address] Wrist min 3 Views MR#: [id number] Acct: [id number] Name: CAMPBELLLORRI Monae Rep #: [id number] : 1965 F 52 From: Myles West MD PCP: Ava Ann NP Status: REG ER Study: Wrist min 3 Views Date of Exam: 02/03/18 Exam# [id number] Ordering Dr: Ian Staples MD STUDY: X-RAY [...] Myles West MD at 9:43 EST Tel [phone], Service support , CC: Ava Ann NP; Ian Staples MD Rn Imcu: Signed 01-Oct-2017 Breast Limited Unilateral Result: Comments: See Note; NOTES: [facility] Imaging Services [address] [place] [address] Breast Limited Unilateral MR#: [id number] Acct: [id number] Name: LORRI HIGHTOWER Rep #: [id number] : 1965 F 52 From: Myles West MD PCP: Ava Ann NP Status: REG CLI Study: Breast Limited Unilateral Date of Exam: 10/01/17 Exam# [id number] Ordering Dr: Ava Ann STUDY: UL TRASOUND [...] Myles West MD at 12:38 EDT Tel [phone], Service support , CC: Ava Ann NP Rn Imcu: Signed 01-Oct-2017 DIAG MAMM W/CAD, BILAT Result: Comments: See Note; NOTES: [facility] Imaging Services [address] [place] [address] DIAG MAMM W/CAD, BILAT MR#: [id number] Acct: [id number] Name: LORRI HIGHTOWER Rep #: [id number] : 1965 F 52 From: Myles West MD PCP: Ava Ann NP Status: REG CLI Study: DIAG MAMM W/CAD, BILAT Date of Exam: 10/01/17 Exam# [id number] Ordering Dr: Ava Ann MAMMOGRAPHY - B [...] Myles West MD at 10:50 EDT Tel [phone], Service support , CC: Ava Ann NP Rn Imcu: Signed Family History Unknown Family Member Name Dates Details Father Comments: , adenocarcinoma of lung, neck - squamous cell carcinoma, HTN, [place], high triglycerides Status: Active Mother Comments: unknown breast finding, osteoarthritis, alcholism Status: Active Social History Name Dates Details Alcohol Use Comments: 0-2 weekly Status: Active Caffeine Use Comments: 1 unsweet tea daily Status: Active No Drug Use Status: Active Non Smoker/No Tobacco Use Status: Active Vital Signs Date Test Result Details 70-Nmf-11907:13 Temperature 97.6 f Comments: Method: Temporal Pulse [...] kg/m2 Body Surface Area Calculated 2.1 m2 04-Pws-146362:15 Temperature 97.5 f Pulse 98 /min Comments: [...] kg/m2 Body Surface Area Calculated 2.11 m2 7-Hoz-314702:21 Pulse 102 /min Comments: Pattern: Regular Respiration [...] 2.11 m2 Results Date Description Value Details 13-Qye-010121:10 Lipid Panel (11699) Comments: September 24; PATIENT WAS FASTINGPERFORMED BY: [facility] [id number] [facility] [id number] LDL/HDL Ratio 2.3 {ratio} (Normal) Range: 0.0-3.2 Comments: LDL/HDL Ratio Men Women 1/2 Avg.Risk 1.0 1.5 Av g.Risk 3.6 3.2 2X Avg.Risk 6.2 5.0 3X Avg.Risk 8.0 6.1 LDL Cholesterol Calc 108 mg/dL (Abnormal) Range: 0-99 VLDL Cholesterol Gabriel 27 mg/dL (Normal) Range: 5-40 HDL Cholesterol 46 mg/dL (Normal) Triglycerides 135 mg/dL (Normal) Range: 0-149 Cholesterol, Total 181 mg/dL (Normal) Range: 100-199 71-Vzu-215451:10 Metabolic Panel, Comprehensive Comments: September 24; PATIENT WAS FASTINGPERFORMED BY: [place] [facility][id number] [facility] [id number] (01540) ALT (SGPT) 16 [iU]/L (Normal) Range: 0-32 [...] 6-24 Glucose 94 mg/dL (Normal) Range: 65-99 42-Rag-637452:10 TSH (THYROID STIMULATING Comments: September 24; PATIENT WAS FASTINGPERFORMED BY: [facility][id number] [facility] [id number] HORMONE) (62484) TSH 2.570 {uIU/mL} (Normal) Range: 0.450-4.500 29-Pzh-699258:10 CBC, Platelets & Auto Diff Comments: to be done September 24; PATIENT WAS FASTINGPERFORMED BY: [facility] [id number] [facility] [id number] (54526) Immature Grans (Abs) 0.0 {x10E3/uL} (Normal) Range: [...] Plan of Care Name Dates Details Instructions Nasal congestion : Follow up if no [...] Planned Procedures Breast Ultrasound - LeftBy: Marissa AWNG, On: 01-Oct-2017 Intent Ava Espino CNP BILATERAL DIAGNOSTIC DIGITAL MAMMOGRAPHY On: 01-Oct-2017 Intent (G0204)By: Ava Ann CNP, CNP, Comments: with tomosynthesis Ava Murillo ULTRASOUND, LEFT BREAST ([id number])By: Marissa On: 20-Sep-2017 Intent Ava WANG CNP, Mary E SCREENING DIGITAL TOMOSYNTHESIS OF On: 20-Sep-2017 Intent BREAST ([id number])By: Ava Ann CNP, CNP, Mary E DEXA SCAN AXIAL SKELETON ([id number])By: On: 20-Sep-2017 Intent Ava Ann CNP, CNP, [...] Detail Indication: Hypocalcemia Encounters Office Visit On: 15-Feb-2018 9:12 Encounter Reason: [...] malignant neoplasm of breast) [facility]; a guarantor
== END ==
PROVIDERS: Family Provider Nurse Practitioner; PCP Nurse Practitioner; Referring Provider Otolaryngology; Visit Provider Otolaryngology
DX: J32.9 Chronic sinusitis, unspecified (principal)
CPT/HCPCS: 87070; 87077; 87205

== ENCOUNTER → 2021-12-26 | Outpatient (CLI) | payer OTHER, SELFPAY ==
[2021-12-26 17:48] LABS: Absolute Lymphocyte Count 2.52 X10^3/uL (0.83-4.51); Absolute Neutrophil Count 4.7 X10^3/uL (2.0-7.7); Basophil# 0.04 X10^3/uL; Basophil% 0.5 % (0-1); Eosinophils% 1.3 % (0-5); Hemoglobin 12.7 g/dL (12.0-15.0); Lymphocyte # 2.52 X10^3/ul (0.83-4.51); Lymphocyte % 31.8 % (19-41); Mean Corp Hgb Conc 31.8 g/dL (32-36); Mean Corpuscular Hgb 27.9 pg (27.0-32.0); Mean Corpuscular Volume 87.9 fL (81-99); Mean Platelet Vol. 10.4 fl (6.2-12.0); Monocyte% 7.6 % (0-10); NRBC Flagged by Analyzer 0 % (0-5); Neutrophil # 4.65 X10^3/uL (2.7-7.7); Neutrophil % 58.5 % (47-70); Platelet Count 312 K/mm3 (150-450); RBC Distribution Width CV 13.6 % (11.6-14.6); RBC Distribution Width SD 43.8 fl (35.1-43.9); Red Blood Count 4.55 M/mm3 (4.2-5.4); White Blood Count 7.9 K/mm3 (4.4-11.0)
[2021-12-26 18:01] LABS: Erythrocyte Sedimentation Rate 21 mm/hr (0-30)
[2021-12-26 18:17] LABS: CRP 8.97 mg/L (0.0-3.0)
== END | disposition home or self-care (01) ==
LOC: MTLAB 15:58
PROVIDERS: Referring Provider Orthopaedic Surgery; Visit Provider Orthopaedic Surgery
DX: T84.012A Broken internal right knee prosthesis, initial encounter (principal)
CPT/HCPCS: 36415; 85025; 85652; 86140